=== PATIENT | female | born 1950 | race Caucasian/White ===

== ENCOUNTER 2017-09-17 10:42 | Emergency (ER) | payer OTHER ==
[~2017-09-17] VITALS: Ht 157.5 cm; Wt 52.3 kg
[2017-09-17 10:52] VITALS: Ht 157.5 cm; Wt 52.3 kg
[2017-09-17] MEDS ORDERED: ALBUT/IPRATROP 3MG/0.5MG NEB 3 ML VIAL INH STA (11:22)
[2017-09-17] MEDS ORDERED: METHYLPREDNISOLONE 125 MG VIAL IV STA (11:22)
--- NOTE | 2017-09-17 11:28 | EMERGENCY ROOM VISIT NOTE ---
History Report prepared by Jill: Behzad Ricci Under the Supervision of: Dr. Brittanie Mahan M.D. First contact with patient: 11:06 Chief Complaint: SHORTNESS OF BREATH Stated Complaint: SOB History of Present Illness The patient is a 67 year old female who presents to the Emergency Room with complaints of intermittent shortness of breath beginning a few days ago. The patient states her symptoms are most intense when she wakes up in the middle of the night. She reports she cannot catch her breath, and she sleeps propped up. The patient notes a history of HTN, pneumonia, and hyperlipidemia. She states she also smokes a pack of cigarettes a day. The patient reports she has been using her sister's inhaler for the past few days, and it has helped her symptoms. She notes she will occasionally have a productive cough. The patient denies a history of chronic lung problems, chest pain, wheezing, coughing up blood, and pain or swelling in her legs. Source of History: patient Onset: a few days ago Position: other (lungs) Quality: other (SOB) Timing: intermittent Modifying Factors (Relieving): other (inhaler) Associated Symptoms: + cough (occasionally and productive), No chest pain Note: Denies: wheezing, coughing up blood, pain or swelling in the legs Review of Systems See HPI for pertinent positives & negatives. A total of 10 systems reviewed and were otherwise negative. Past Medical & Surgical Medical Problems: (1) HLD (hyperlipidemia) (2) HTN (hypertension) (3) PNA (pneumonia) Family History Patient reports no known family medical history. Social History Smoking Status: Current Every Day Smoker Marital Status: Housing Status: lives with significant other Occupation Status: retired Current/Historical Medications Scheduled Amlodipine (Norvasc), 5 MG PO DAILY Atenolol/Chlorthalidone (Tenoretic 100 Mg/25 Mg), 1 TAB PO DAILY Atorvastatin (Lipitor), 40 MG PO DAILY Benazepril (Lotensin), 40 MG PO DAILY Prednisone (Prednisone), 10 MG PO DIRECTED Scheduled PRN Albuterol Hfa (Ventolin Hfa), 2 PUFFS INH Q6H PRN for asthma Allergies Coded Allergies: No Known Allergies (Unverified , 09/17/17) Physical Exam Vital Signs Date Time Temp Pulse Resp B/P (MAP) Pulse Ox O2 Delivery O2 Flow Rate FiO2 09/17/17 13:18 36.9 69 18 152/75 93 Room Air 09/17/17 12:40 66 09/17/17 12:28 66 18 154/80 96 Room Air 09/17/17 11:27 Room Air 97 09/17/17 10:52 36.6 64 22 152/81 98 Room Air Physical Exam Vital signs reviewed. General: Well-appearing 67 year old female, in no significant distress. HEENT: No scleral icterus, PERRLA, neck supple. Atraumatic. Cardiovascular: Regular rate and rhythm, no extra sounds. Pulmonary: Diffuse wheezing bilaterally, normal work of breathing. Abdomen: Soft, nontender, nondistended, positive bowel sounds. Musculoskeletal: Atraumatic, no peripheral edema. Neurologic: Patient awake alert and oriented x 3 Skin: Warm, dry, no rash Medical Decision & Procedures ER Provider Diagnostic Interpretation: X-ray results as stated below per interpretation by me and the radiologist: SINGLE VIEW CHEST CLINICAL HISTORY: Cough and dyspnea. FINDINGS: An AP, portable, upright chest radiograph is obtained. No prior studies are available for comparison at the time of dictation. The examination is degraded by portable technique and apical lordotic positioning. The cardiomediastinal silhouette is unremarkable noting mild atherosclerotic calcification of the thoracic aorta. Emphysematous change is noted. Nonspecific interstitial thickening is likely chronic. No airspace consolidation or pleural effusion is identified. No pneumothorax is seen. The skeletal structures are osteopenic. The bony thorax is grossly intact. Cholecystectomy clips are identified in the right upper quadrant. IMPRESSION: Emphysematous change with no acute cardiopulmonary abnormality. Electronically signed by: Dusty Garcia M.D. 09/17/2017 11:43 AM Dictated Date/Time: 09/17/2017 11:42 AM Laboratory Results 09/17/17 11:25 Red Blood Count 4.55, Mean Corpuscular Volume 90.8, Mean Corpuscular Hemoglobin 31.4, Mean Corpuscular Hemoglobin Concent 34.6, Mean Platelet Volume 9.4, Neutrophils (%) (Auto) 60.3, Lymphocytes (%) (Auto) 25.0, Monocytes (%) (Auto) 12.5, Eosinophils (%) (Auto) 1.2, Basophils (%) (Auto) 0.6, Neutrophils # (Auto ) 5.03, Lymphocytes # (Auto) 2.08, Monocytes # (Auto) 1.04, Eosinophils # (Auto ) 0.10, Basophils # (Auto) 0.05 09/17/17 11:25 Test 09/17/17 11:25 White Blood Count 8.33 K/uL (4.8-10.8) Red Blood Count 4.55 M/uL (4.2-5.4) Hemoglobin 14.3 g/dL (12.0-16.0) Hematocrit 41.3 % (37-47) Mean Corpuscular Volume 90.8 fL (80-100) Mean Corpuscular Hemoglobin 31.4 pg (25-34) Mean Corpuscular Hemoglobin Concent 34.6 g/dl (32-36) Platelet Count 324 K/uL (130-400) Mean Platelet Volume 9.4 fL (7.4-10.4) Neutrophils (%) (Auto) 60.3 % Lymphocytes (%) (Auto) 25.0 % Monocytes (%) (Auto) 12.5 % Eosinophils (%) (Auto) 1.2 % Basophils (%) (Auto) 0.6 % Neutrophils # (Auto) 5.03 K/uL (1.4-6.5) Lymphocytes # (Auto) 2.08 K/uL (1.2-3.4) Monocytes # (Auto) 1.04 K/uL (0.11-0.59) Eosinophils # (Auto) 0.10 K/uL (0-0.5) Basophils # (Auto) 0.05 K/uL (0-0.2) RDW Standard Deviation 43.7 fL (36.4-46.3) RDW Coefficient of Variation 13.3 % (11.5-14.5) Immature Granulocyte % (Auto) 0.4 % Immature Granulocyte # (Auto) 0.03 K/uL (0.00-0.02) Anion Gap 9.0 mmol/L (3-11) Est Creatinine Clear Calc Drug Dose 31.6 ml/min Estimated GFR () 47.2 Estimated GFR (Non- 40.7 BUN/Creatinine Ratio 16.8 (10-20) Calcium Level 9.1 mg/dl (8.5-10.1) Total Bilirubin 0.4 mg/dl (0.2-1) Direct Bilirubin 0.1 mg/dl (0-0.2) Aspartate Amino Transf (AST/SGOT) 19 U/L (15-37) Alanine Aminotransferase (ALT/SGPT) 19 U/L (12-78) Alkaline Phosphatase 82 U/L (45-117) Troponin I < 0.015 ng/ml (0-0.045) Total Protein 7.9 gm/dl (6.4-8.2) Albumin 4.2 gm/dl (3.4-5.0) Laboratory results per my review. Medications Administered Medications (Trade) Dose Ordered Sig/Pamela Route Start Time Stop Time Status Last Admin Dose Admin Albuterol/ Ipratropium (Duoneb) 3 ml NOW STAT INH 09/17/17 11:22 09/17/17 11:25 DC 09/17/17 11:38 3 ML Methylprednisolone Sodium Succinate (Solu-Medrol IV) 125 mg NOW STAT IV 09/17/17 11:22 09/17/17 11:25 DC 09/17/17 11:38 125 MG ECG Per My Interpretation Indication: SOB/dyspnea Rate (beats per minute): 57 Rhythm: sinus bradycardia Findings: no ectopy, other (T-wave abnormality in the inferior and lateral leads. No ST elevation.) ED Course 1120: Past medical records reviewed. The patient was evaluated in room C02. A complete history and physical examination was performed. 1254: Upon reevaluation, the patient appeared to have improvement of her symptoms. I discussed findings with her. She verbalized agreement of the treatment plan. The patient was discharged home. Medical Decision Differential diagnosis: Etiologies such as infections, reactive airway disease, pneumonia, pneumothorax , COPD, CHF, cardiac ischemia, pulmonary embolism, musculoskeletal, gastrointestinal, as well as others were entertained. This patient was evaluated and appeared to be in no significant distress. IV access was obtained and laboratory work was drawn. Patient was given a DuoNeb treatment, IV Solu-Medrol. Chest x-ray was performed and reveals evidence of emphysema without evidence of focal lung consolidation or failure. Patient's laboratory work is fairly unrevealing. Troponin is negative. Patient's feeling much improved after the above interventions. Patient will be discharged with an albuterol inhaler, prednisone taper. She was advised to stop smoking. Patient was asked to follow-up with her PCP this week for reevaluation and return to the ED for worsening of symptoms or any medical concerns. Medication Reconcilliation Current Medication List: was personally reviewed by me Blood Pressure Screening Patient's blood pressure: Elevated blood pressure Blood pressure disposition: Referred to PCP Impression Primary Impression: Emphysema/COPD Additional Impressions: Tobacco dependence due to cigarettes Encounter for smoking cessation counseling Scribe Attestation The scribe's documentation has been prepared under my direction and personally reviewed by me in its entirety. I confirm that the note above accurately reflects all work, treatment, procedures, and medical decision making performed by me. Departure Information Dispostion Home / Self-Care Prescriptions Albuterol Hfa (VENTOLIN HFA) 200 Puffs/20764 Mcg Aers 2 PUFFS INH Q6H Y for asthma, #1 INHALER Prov: Brittanie Mahan M.D. 09/17/17 Prednisone (Prednisone) 10 Mg Tab 10 MG PO DIRECTED, #31 TAB 40 mg daily for 4 days, 30 mg daily for 3 days, 20 mg daily for 2 days, 10 mg daily for 2 days Prov: Brittanie Mahan M.D. 09/17/17 Referrals Dion De Dios M.D. Forms HOME CARE DOCUMENTATION FORM, IMPORTANT VISIT INFORMATION Patient Instructions ED Smoking Cessation, [facility] Additional Instructions Diagnosis: COPD exacerbation, tobacco dependency Please read the smoking cessation handout. Prednisone 40 mg daily for 4 days, 30 mg daily for 3 days, 20 mg daily for 2 days, 10 mg daily for 2 days. Albuterol inhaler 2 puffs every 4 hours as needed for wheezing or cough. Follow-up with your primary care physician this week for reevaluation. Return to the ED for worsening of symptoms or any medical concerns. Problem Qualifiers
[2017-09-17 11:31] LABS: BASO % 0.6 %; BASO ABS # 0.05 K/uL (0-0.2); EOS % 1.2 %; HEMATOCRIT 41.3 % (37-47); HEMOGLOBIN 14.3 g/dL (12.0-16.0); IG# 0.03 K/uL (0.00-0.02); LYMPH ABS # 2.08 K/uL (1.2-3.4); MEAN CELL VOLUME 90.8 fL (80-100); MEAN CORPUSCULAR HEMOGLOBIN 31.4 pg (25-34); MEAN CORPUSCULAR HGB CONC 34.6 g/dl (32-36); MEAN PLATELET VOLUME 9.4 fL (7.4-10.4); MONO % 12.5 %; MONO ABS # 1.04 K/uL (0.11-0.59); NEUT % 60.3 %; NEUT ABS # 5.03 K/uL (1.4-6.5); PLATELET COUNT 324 K/uL (130-400); RED CELL DISTRIBUTION WIDTH CV 13.3 % (11.5-14.5); RED CELL DISTRIBUTION WIDTH SD 43.7 fL (36.4-46.3); WHITE BLOOD COUNT 8.33 K/uL (4.8-10.8)
--- NOTE | 2017-09-17 11:44 | DIAGNOSTIC IMAGING REPORT ---
SINGLE VIEW CHEST CLINICAL HISTORY: Cough and dyspnea. FINDINGS: An AP, portable, upright chest radiograph is obtained. No prior studies are available for comparison at the time of dictation. The examination is degraded by portable technique and apical lordotic positioning. The cardiomediastinal silhouette is unremarkable noting mild atherosclerotic calcification of the thoracic aorta. Emphysematous change is noted. Nonspecific interstitial thickening is likely chronic. No airspace consolidation or pleural effusion is identified. No pneumothorax is seen. The skeletal structures are osteopenic. The bony thorax is grossly intact. Cholecystectomy clips are identified in the right upper quadrant. IMPRESSION: Emphysematous change with no acute cardiopulmonary abnormality. Electronically signed by: Dusty Garcia M.D. 09/17/2017 11:43 AM Dictated Date/Time: 09/17/2017 11:42 AM
[2017-09-17 11:51] LABS: ALBUMIN 4.2 gm/dl (3.4-5.0); ALKALINE PHOSPHATASE 82 U/L (45-117); ALT/SGPT 19 U/L (12-78); AST/SGOT 19 U/L (15-37); BLOOD UREA NITROGEN 22 mg/dl (7-18); CALCIUM 9.1 mg/dl (8.5-10.1); CARBON DIOXIDE 27 mmol/L (21-32); CREATININE 1.33 mg/dl (0.60-1.20); GLUCOSE 97 mg/dl (70-99); POTASSIUM 3.9 mmol/L (3.5-5.1); SODIUM 132 mmol/L (136-145); TOTAL PROTEIN 7.9 gm/dl (6.4-8.2)
[2017-09-17] MEDS ORDERED: ATOR-24 PO (11:54)
[2017-09-17] MEDS ORDERED: ATEN100T8 PO (11:54)
[2017-09-17] MEDS ORDERED: BENA1TAB53 PO (11:54)
[2017-09-17] MEDS ORDERED: AMLO5TAB3 PO (11:54)
[2017-09-17] MEDS ORDERED: PRED10TA PO (13:08)
[2017-09-17] MEDS ORDERED: VNTHFA/IN INH (13:09)
[2017-09-17 13:18] VITALS: BP 152/75; PULSE 69; TEMP 36.9; O2SAT 93
== END 2017-09-17 13:18 | disposition home or self-care (01) ==
LOC: C.EDB 10:43 → C.EDC 13:18
DX: J44.9 Chronic obstructive pulmonary disease, unspecified (principal); F17.200 Nicotine dependence, unspecified, uncomplicated; E78.5 Hyperlipidemia, unspecified; I10 Essential (primary) hypertension

== ENCOUNTER 2018-06-21 10:11 | Inpatient (IN) ==
[~2018-06-21 10:11] MED LIST: AMIODARONE 360MG / 200ML D5W IV ONE; EPINEPHrine 2 MG in DEXTROSE 5% 250 ML IV SCH
[2018-06-21] MEDS ORDERED: HEPARIN (PORCINE) 1000 UNIT/ML 10 ML (CATH LAB USE ONLY) ONE (10:55)
[2018-06-21] MEDS ORDERED: MIDAZOLAM HCL 1 MG/ML 2ML VIAL ONE (10:55)
[2018-06-21] MEDS ORDERED: fentaNYL citrate 100 MCG/2 ML VIAL ONE (10:55)
[2018-06-21] MEDS ORDERED: NiCARDipine HCL INJ 2.5 MG/ML 10 ML AMP ONE (10:55)
[2018-06-21] MEDS ORDERED: NITROGLYCERIN/D5W 100MCG/ML 20ML SYR ONE (10:56)
[2018-06-21] MEDS ORDERED: SODIUM CHLORIDE 0.9% 1000ML 1,000 ML IV SCH (11:00)
[2018-06-21 11:17] LABS: Partial Thromboplastin Ratio 0.8; Prothrombin Time 10.7 Seconds (9.0-12.0)
[2018-06-21] MEDS ORDERED: HEPARIN SOD (PORCINE) 1000 UNIT/ML 10 ML VIAL ONE (11:24)
[2018-06-21 11:26] LABS: Hematocrit (blood only) 36.9 % (37-47); Hemoglobin 11.8 g/dL (12.0-16.0); Mean Corpuscular Volume 93.7 fL (80-100); Mean Platelet Volume 9.7 fL (7.4-10.4); Platelet Count 269 K/uL (130-400); RDW Coefficient of Variation 13.3 % (11.5-14.5); RDW Standard Deviation 45.5 fL (36.4-46.3); Red Blood Count 3.94 M/uL (4.2-5.4); White Blood Count 9.56 K/uL (4.8-10.8)
[2018-06-21 11:27] LABS: Alanine Aminotransferase 63 U/L (12-78); Albumin Level 2.4 gm/dl (3.4-5.0); BUN Creatinine Ratio 9.8 (10-20); Blood Urea Nitrogen 19 mg/dl (7-18); Carbon Dioxide 26 mmol/L (21-32); Chloride 98 mmol/L (98-107); Est GFR (African American) 30.4; Est GFR (Non-African American) 26.3; Glucose 215 mg/dl (70-99); Sodium 136 mmol/L (136-145)
[2018-06-21] MEDS ORDERED: ePHEDrine sulfate 50 MG/ML SYR IV ONE (11:31)
[2018-06-21 11:32] LABS: Calcium 13.5 mg/dl (8.5-10.1)
[2018-06-21 11:32] LABS: iSTAT Creatinine 1.7 mg/dl (0.6-1.3); iSTAT Hemoglobin 11.6 g/dl (12.0-16.0); iSTAT Ionized Calcium 1.37 mmol/l (1.12-1.32); iSTAT Potassium 3.7 mEq/L (3.3-5.0)
[2018-06-21 11:36] LABS: Albumin Globulin Ratio 0.7 (0.9-2); Alkaline Phosphatase 116 U/L (45-117); Bilirubin,Total 0.3 mg/dl (0.2-1); Creatine Kinase MB 9.1 ng/ml (0.5-3.6); Globulin 3.6 gm/dl (2.5-4.0); NT Pro B Type Natriuretic Pept 12023 pg/ml (0-900); Phosphorus 7.6 mg/dl (2.5-4.9)
[2018-06-21] MEDS ORDERED: NOREPINEPHRINE BITARTRATE 1 MG/ML 4 ML VIAL (CATH LAB USE ONLY) ONE (11:46)
[2018-06-21 11:52] LABS: T4 Free Thyroxine 1.18 ng/dl (0.8-1.6)
[2018-06-21] MEDS ORDERED: SODIUM BICARB 8.4% INJ 50 MEQ/50 ML SYR ONE ×2 (11:53→12:16)
--- NOTE | 2018-06-21 12:03 | Emergency Department Note ---
Entered by Nadja Bravo acting as a scribe for Vinay Ferrera MD History of Present Illness General Chief complaint: Cardiac Arrest/CPR Source: patient and family Mode of arrival: ambulatory Limitations: altered mental status History of Present Illness Onset (ago): minute(s) 10 Location: chest Pain Consistency: + other (worsening) Quality: + other (cardiac arrest) Associated symptoms: + shortness of breath and + other (The patient complains of diarrhea. ) The HPI is limited secondary to cardiac arrest. The patient is a 67 year old female with a history of hypertension, hyperlipidemia, and COPD who presents to the ED with cardiac arrest that onset 10 minutes ago. The patient presents with her . He states that she has been complaining of shortness of breath for several days prior to this morning. He notes that she has also been experiencing 5-10 episodes of diarrhea per day for 2 weeks. He states that the patient was concerned that she had the flu. Per , the patient asked him to drive her to the ED today for worsening shortness of breath. He notes that during the beginning of the drive, she was talking with him normally. He states that when they were about 10 minutes away, the patient collapsed in the vehicle and became unresponsive. Per , the patient was seen by her PCP several weeks ago and no issues including her heart were identified. He notes that at this time, she was told that she had a kidney problem. He denies a history of heart attack or irregular heartbeat. Per , the patient is not on oxygen at home. He is unsure of the medications that she takes and states that she is not on blood thinners. Home Medications Home Medications Medication Instructions Recorded Confirmed Type albuterol sulfate 2 inh INHALATION Q6H PRN 06/21/18 06/21/18 History amlodipine 5 mg PO DAILY 06/21/18 06/21/18 History atenolol-chlorthalidone 1 tab PO DAILY 06/21/18 06/21/18 History atorvastatin 40 mg PO DAILY 06/21/18 06/21/18 History benazepril 40 mg PO DAILY 06/21/18 06/21/18 History Allergies Allergy/AdvReac Type Severity Reaction Status Date / Time No Known Allergies Allergy Unverified 06/21/18 11:46 Past Med/Surg History Medical History CKD (chronic kidney disease), stage III (Chronic) Tobacco abuse (Chronic) COPD (chronic obstructive pulmonary disease) (Chronic) Cardiac arrest HTN (hypertension) (Chronic) HLD (hyperlipidemia) (Chronic) Emphysema/COPD (Acute) Encounter for smoking cessation counseling (Acute) Tobacco dependence due to cigarettes (Acute) No pertinent family history Surgical History History of appendectomy (Chronic) History of cholecystectomy (Chronic) No pertinent past surgical history Family History Other Diabetes Hypertension Social History Preferred Language: Czech Communication Ability: sedated Communication Ability Comment: Sedated on vent Space Sciences Director Required: No Beliefs That Will Affect Care: None marital status: marital status details: Current Living Situation: Spouse current occupational status: retired Other Information That Helps Us Care for You: No Smoking Status: Current every day smoker Hx Alcohol Use: No Hx Substance Use: No Review of Systems See HPI for pertinent positives & negatives. Other (ROS is limited secondary to cardiac arrest) Physical Exam Vital Signs Vital Signs - 24 hr 06/21/18 10:12 06/21/18 10:17 06/21/18 10:18 Rectal Temperature - Source 1 Sepsis Recent Fever Within 48 Hours No Sepsis New/Unexplained Change in Mental Status No Sepsis Action Taken by Nursing No Action Required Arterial BP Systolic Arterial BP Diastolic End-Tidal CO2 30 End Tidal CO2 (18-54mmHg) 20 Pulse Rate 138 H Pulse Rate [Bilateral] 48 L Pulse Rate from SpO2 Sensor Pulse Strength [Bilateral] Weak Respiratory Rate 16 Respiratory Effort / Characteristics Mechanically Ventilated Respiratory Depth Respiratory Pattern Blood Pressure Blood Pressure [Right Arm] 138/110 H Blood Pressure Mean 33 Blood Pressure Mean [Right Arm] 119 Blood Pressure Position [Right Arm] Lying Pulse Oximetry 70 L Oxygen Delivery Method Mechanical Vent Oxygen Flow Rate 12 Fraction of Inspired Oxygen 06/21/18 10:19 06/21/18 10:20 06/21/18 10:22 Rectal Temperature - Source 1 Sepsis Recent Fever Within 48 Hours Sepsis New/Unexplained Change in Mental Status Sepsis Action Taken by Nursing Arterial BP Systolic Arterial BP Diastolic End-Tidal CO2 33 20 End Tidal CO2 (18-54mmHg) Pulse Rate 147 H 45 L Pulse Rate [Bilateral] Pulse Rate from SpO2 Sensor Pulse Strength [Bilateral] Respiratory Rate 12 Respiratory Effort / Characteristics Respiratory Depth Respiratory Pattern Blood Pressure Blood Pressure [Right Arm] Blood Pressure Mean Blood Pressure Mean [Right Arm] Blood Pressure Position [Right Arm] Pulse Oximetry 100 Oxygen Delivery Method Mechanical Vent Oxygen Flow Rate Fraction of Inspired Oxygen 100 06/21/18 10:27 06/21/18 10:30 06/21/18 10:36 Rectal Temperature - Source 1 Sepsis Recent Fever Within 48 Hours Sepsis New/Unexplained Change in Mental Status Sepsis Action Taken by Nursing Arterial BP Systolic Arterial BP Diastolic End-Tidal CO2 25 27 29 End Tidal CO2 (18-54mmHg) Pulse Rate 126 H 59 L Pulse Rate [Bilateral] Pulse Rate from SpO2 Sensor 132 H Pulse Strength [Bilateral] Respiratory Rate Respiratory Effort / Characteristics Respiratory Depth Respiratory Pattern Blood Pressure 47/41 L 138/110 H Blood Pressure [Right Arm] Blood Pressure Mean 43 119 Blood Pressure Mean [Right Arm] Blood Pressure Position [Right Arm] Pulse Oximetry Oxygen Delivery Method Oxygen Flow Rate Fraction of Inspired Oxygen 06/21/18 10:40 06/21/18 10:41 06/21/18 10:49 Rectal Temperature - Source 1 Sepsis Recent Fever Within 48 Hours Sepsis New/Unexplained Change in Mental Status Sepsis Action Taken by Nursing Arterial BP Systolic Arterial BP Diastolic End-Tidal CO2 24 25 18 End Tidal CO2 (18-54mmHg) Pulse Rate 46 L 45 L 43 L Pulse Rate [Bilateral] Pulse Rate from SpO2 Sensor 49 L 46 L Pulse Strength [Bilateral] Respiratory Rate 16 Respiratory Effort / Characteristics Respiratory Depth Respiratory Pattern Blood Pressure 70/56 L Blood Pressure [Right Arm] Blood Pressure Mean 60 Blood Pressure Mean [Right Arm] Blood Pressure Position [Right Arm] Pulse Oximetry 100 96 100 Oxygen Delivery Method Oxygen Flow Rate Fraction of Inspired Oxygen 100 06/21/18 10:51 06/21/18 10:58 06/21/18 11:00 Rectal Temperature - Source 1 Sepsis Recent Fever Within 48 Hours Sepsis New/Unexplained Change in Mental Status Sepsis Action Taken by Nursing Arterial BP Systolic Arterial BP Diastolic End-Tidal CO2 22 15 23 End Tidal CO2 (18-54mmHg) Pulse Rate 44 L 44 L 41 L Pulse Rate [Bilateral] Pulse Rate from SpO2 Sensor 43 L 44 L 43 L Pulse Strength [Bilateral] Respiratory Rate Respiratory Effort / Characteristics Respiratory Depth Respiratory Pattern Blood Pressure 37/33 L Blood Pressure [Right Arm] Blood Pressure Mean 34 Blood Pressure Mean [Right Arm] Blood Pressure Position [Right Arm] Pulse Oximetry 100 100 100 Oxygen Delivery Method Oxygen Flow Rate Fraction of Inspired Oxygen 06/21/18 11:02 06/21/18 11:06 06/21/18 11:09 Rectal Temperature - Source 1 Sepsis Recent Fever Within 48 Hours Sepsis New/Unexplained Change in Mental Status Sepsis Action Taken by Nursing Arterial BP Systolic Arterial BP Diastolic End-Tidal CO2 23 19 18 End Tidal CO2 (18-54mmHg) Pulse Rate 123 H 76 82 Pulse Rate [Bilateral] Pulse Rate from SpO2 Sensor Pulse Strength [Bilateral] Respiratory Rate 16 Respiratory Effort / Characteristics Respiratory Depth Respiratory Pattern Blood Pressure 133/112 H Blood Pressure [Right Arm] Blood Pressure Mean 46 119 Blood Pressure Mean [Right Arm] Blood Pressure Position [Right Arm] Pulse Oximetry 100 Oxygen Delivery Method Oxygen Flow Rate Fraction of Inspired Oxygen 100 06/21/18 11:10 06/21/18 11:16 06/21/18 11:20 Rectal Temperature - Source 1 Sepsis Recent Fever Within 48 Hours Sepsis New/Unexplained Change in Mental Status Sepsis Action Taken by Nursing Arterial BP Systolic Arterial BP Diastolic End-Tidal CO2 16 15 17 End Tidal CO2 (18-54mmHg) Pulse Rate 82 89 84 Pulse Rate [Bilateral] Pulse Rate from SpO2 Sensor Pulse Strength [Bilateral] Respiratory Rate Respiratory Effort / Characteristics Respiratory Depth Respiratory Pattern Blood Pressure 136/111 H Blood Pressure [Right Arm] Blood Pressure Mean 119 Blood Pressure Mean [Right Arm] Blood Pressure Position [Right Arm] Pulse Oximetry Oxygen Delivery Method Oxygen Flow Rate Fraction of Inspired Oxygen 06/21/18 11:52 06/21/18 12:41 06/21/18 14:00 Rectal Temperature - Source 1 Sepsis Recent Fever Within 48 Hours Sepsis New/Unexplained Change in Mental Status Sepsis Action Taken by Nursing Arterial BP Systolic Arterial BP Diastolic End-Tidal CO2 End Tidal CO2 (18-54mmHg) Pulse Rate Pulse Rate [Bilateral] Pulse Rate from SpO2 Sensor Pulse Strength [Bilateral] Respiratory Rate 16 Respiratory Effort / Characteristics Respiratory Depth Respiratory Pattern Blood Pressure Blood Pressure [Right Arm] Blood Pressure Mean Blood Pressure Mean [Right Arm] Blood Pressure Position [Right Arm] Pulse Oximetry Oxygen Delivery Method Oxygen Flow Rate Fraction of Inspired Oxygen 40 40 100 06/21/18 14:08 06/21/18 14:15 06/21/18 14:23 Rectal Temperature - Source 1 Sepsis Recent Fever Within 48 Hours Sepsis New/Unexplained Change in Mental Status Sepsis Action Taken by Nursing Arterial BP Systolic Arterial BP Diastolic End-Tidal CO2 16 End Tidal CO2 (18-54mmHg) Pulse Rate 85 79 Pulse Rate [Bilateral] 84 Pulse Rate from SpO2 Sensor Pulse Strength [Bilateral] Respiratory Rate 19 19 Respiratory Effort / Characteristics Gasping/Agonal Mechanically Ventilated Respiratory Depth Normal Respiratory Pattern Agonal Apnea Blood Pressure Blood Pressure [Right Arm] 50/30 L Blood Pressure Mean Blood Pressure Mean [Right Arm] 36 Blood Pressure Position [Right Arm] Pulse Oximetry 100 Oxygen Delivery Method Mechanical Vent Mechanical Vent Oxygen Flow Rate Fraction of Inspired Oxygen 100 06/21/18 14:29 06/21/18 14:30 06/21/18 14:33 Rectal Temperature - Source 1 Sepsis Recent Fever Within 48 Hours Sepsis New/Unexplained Change in Mental Status Sepsis Action Taken by Nursing Arterial BP Systolic Arterial BP Diastolic End-Tidal CO2 16 16 15 End Tidal CO2 (18-54mmHg) Pulse Rate 76 76 76 Pulse Rate [Bilateral] Pulse Rate from SpO2 Sensor Pulse Strength [Bilateral] Respiratory Rate Respiratory Effort / Characteristics Respiratory Depth Respiratory Pattern Blood Pressure Blood Pressure [Right Arm] Blood Pressure Mean 137 72 Blood Pressure Mean [Right Arm] Blood Pressure Position [Right Arm] Pulse Oximetry Oxygen Delivery Method Oxygen Flow Rate Fraction of Inspired Oxygen 06/21/18 14:40 06/21/18 14:47 06/21/18 14:50 Rectal Temperature - Source 1 Sepsis Recent Fever Within 48 Hours Sepsis New/Unexplained Change in Mental Status Sepsis Action Taken by Nursing Arterial BP Systolic Arterial BP Diastolic End-Tidal CO2 17 23 18 End Tidal CO2 (18-54mmHg) Pulse Rate 73 84 84 Pulse Rate [Bilateral] Pulse Rate from SpO2 Sensor 72 78 96 H Pulse Strength [Bilateral] Respiratory Rate Respiratory Effort / Characteristics Respiratory Depth Respiratory Pattern Blood Pressure 146/49 H Blood Pressure [Right Arm] Blood Pressure Mean 81 Blood Pressure Mean [Right Arm] Blood Pressure Position [Right Arm] Pulse Oximetry 100 93 93 Oxygen Delivery Method Oxygen Flow Rate Fraction of Inspired Oxygen 06/21/18 15:00 Rectal Temperature - Source 1 32.7 C L Sepsis Recent Fever Within 48 Hours Sepsis New/Unexplained Change in Mental Status Sepsis Action Taken by Nursing Arterial BP Systolic 60 Arterial BP Diastolic 40 End-Tidal CO2 16 End Tidal CO2 (18-54mmHg) Pulse Rate 64 Pulse Rate [Bilateral] Pulse Rate from SpO2 Sensor 173 H Pulse Strength [Bilateral] Respiratory Rate Respiratory Effort / Characteristics Respiratory Depth Respiratory Pattern Blood Pressure Blood Pressure [Right Arm] Blood Pressure Mean Blood Pressure Mean [Right Arm] Blood Pressure Position [Right Arm] Pulse Oximetry 85 L Oxygen Delivery Method Oxygen Flow Rate Fraction of Inspired Oxygen GENERAL: Unresponsive, ill appearing. HENT: Normocephalic, atraumatic. Oropharynx with dry mucous membranes and otherwise unremarkable. EYES: Normal conjunctiva. Sclera non-icteric. Pupils 3mm bilaterally and sluggishly reactive. NECK: Atraumatic. RESPIRATORY: Scattered rhonchi with manual ventilation. CARDIAC: Pulseless. Extremities cool. ABDOMEN: Soft, non-distended. No masses. RECTAL: Deferred. MUSCULOSKELETAL: No joint edema. LOWER EXTREMITIES: Calves are equal size bilaterally. No edema. No dis coloration. NEURO: GCS 3 SKIN: No rash or jaundice noted. Course 1008: Past medical records reviewed. The patient was first seen in the ambulance bay upon arrival. CPR was started. The patient was evaluated in room B01. A complete history and physical examination was performed. 1028: CPR was started again. 1049: I reviewed the patient's case with Dr. Dano Huerta - Networks Computer Consultant. 1115: I reviewed the patient's case with Dr. Ojeda - ICU Plug Drill Operator. 1119: I reviewed the patient's case with Dr. Dano Huerta - Networks Computer Consultant. He states that [place]. 1132: I reviewed the patient's case with Vicky Kenney for Dr. Santiago. She will evaluate the patient for further management. Consultations Consultation #1: 1049: I reviewed the patient's case with Dr. Huerta - Software Quality Analyst. Time: 10:49 Consultation #2: 1115: I reviewed the patient's case with Dr. Ojeda - ICU Plug Drill Operator. Time: 11:15 Consultation #3: 1119: I reviewed the patient's case with Dr. Dano Huerta - Networks Computer Consultant. He states that he will take her [place]. Time: 11:19 Additional Consultation(s): 1132: I reviewed the patient's case with Vicky Kenney for Dr. Santiago. She will evaluate the patient for further management. Administered Medications Discontinued Medications Amiodarone HCl/Dextrose (Nexterone / D5w) Confirm Administered Dose 360 mg IV .ST[facility]-MED ONE Stop: 06/21/18 15:05 Last Admin: 06/21/18 15:31 Dose: 360 mg Documented by: [id number] Cosigned by: [id number] Cisatracurium Besylate (Nimbex) 5.3 mg IV ONCE STA Stop: 06/21/18 14:57 Last Admin: 06/21/18 16:42 Dose: Not Given Documented by: [id number] Dobutamine HCl/Dextrose (Dobutamine / D5w (Software Quality Analyst Use Only)) Confirm Administered Dose 500 mg .ROUTE .[facility]-MED ONE Stop: 06/21/18 12:52 Last Admin: 06/21/18 16:39 Dose: Not Given Documented by: [id number] Dopamine HCl/Dextrose (Dopamine / D5w) Confirm Administered Dose 400 mg IV .[facility]- MED ONE Stop: 06/21/18 15:08 Last Admin: 06/21/18 15:33 Dose: Not Given Documented by: [id number] Epinephrine HCl (Epinephrine) Confirm Administered Dose 4 mg .ROUTE .[facility]-MED ONE Stop: 06/21/18 13:37 Last Admin: 06/21/18 16:40 Dose: Not Given Documented by: [id number] Eptifibatide (Integrilin (Software Quality Analyst Use Only)) Confirm Administered Dose 20 mg .ROUTE .[facility]-MED ONE Stop: 06/21/18 12:45 Last Admin: 06/21/18 16:39 Dose: Not Given Documented by: [id number] Fentanyl Citrate (Fentanyl Citrate) Confirm Administered Dose 100 mcg .ROUTE .[facility]-MED ONE Stop: 06/21/18 10:56 Last Admin: 06/21/18 16:35 Dose: Not Given Documented by: [id number] Furosemide (Lasix) Confirm Administered Dose 40 mg IV .[facility]-MED ONE Stop: 06/21/18 12:52 Last Admin: 06/21/18 16:39 Dose: Not Given Documented by: [id number] Heparin Sodium (Porcine) (Heparin Iv Bolus (Software Quality Analyst Use Only)) Confirm Administered Dose 10,000 units .ROUTE .[facility]-MED ONE Stop: 06/21/18 10:56 Last Admin: 06/21/18 16:35 Dose: Not Given Documented by: [id number] Heparin Sodium (Porcine) (Heparin Iv Bolus) Confirm Administered Dose 10,000 units .ROUTE .STK-MED ONE Stop: 06/21/18 11:25 Last Admin: 06/21/18 16:36 Dose: Not Given Documented by: [id number] Heparin Sodium/Sodium Chloride (Heparin/Nss 1000 Unit/500ml Flush Bag) Confirm Administered Dose 3,000 units IV .STK-MED ONE Stop: 06/21/18 10:57 Last Admin: 06/21/18 16:35 Dose: Not Given Documented by: [id number] Sodium Chloride (Nss 1000ml) 1,000 mls @ 999 mls/hr IV .Q1H1M [facility] Stop: 06/21/18 12:00 Last Admin: 06/21/18 16:36 Dose: Not Given Documented by: [id number] Epinephrine HCl 2 mg/ Dextrose 252 mls @ 198.83 mls/hr IV .Q1H17M AYESHA; Protocol Stop: 06/21/18 11:15 Last Admin: 06/21/18 16:33 Dose: Not Given Documented by: [id number] Vasopressin 20 units/ Sodium (Chloride) 101 mls @ 0 mls/hr IV .Q0M AYESHA Stop: 07/21/18 12:08 Last Infusion: 06/21/18 16:15 Dose: 0 unit/min, 0 mls/hr Documented by: [id number] Admin: 06/21/18 14:30 Dose: 0.04 unit/min, 12.1 mls/hr Documented by: [id number] Cosigned by: [id number] Epinephrine HCl 4 mg/ Dextrose 254 mls @ 220.45 mls/hr IV .Q1H10M [facility]; Protocol Stop: 07/21/18 11:14 Last Admin: 06/21/18 17:57 Dose: Not Given Documented by: [id number] Admin: 06/21/18 17:57 Dose: Not Given Documented by: [id number] Titration: 06/21/18 16:24 Dose: 0 mcg/kg/min, 0 mls/hr Documented by: [id number] Admin: 06/21/18 16:23 Dose: Not Given Documented by: [id number] Admin: 06/21/18 15:29 Dose: 1.4 mcg/kg/min, 280.6 mls/hr Documented by: [id number] Albumin Human (Albumin 5%) 500 mls @ 500 mls/hr IV ONE ONE Stop: 06/21/18 14:41 Last Infusion: 06/21/18 16:34 Dose: 0 mls/hr Documented by: [id number] Admin: 06/21/18 15:34 Dose: 500 mls/hr Documented by: [id number] Ketamine HCl 500 mg/ Sodium (Chloride) 500 mls @ 5.26 mls/hr IV .Q24H AYESHA; Protocol Stop: 07/21/18 14:29 Last Admin: 06/21/18 15:25 Dose: 0.4 mg/kg/hr, 21 mls/hr Documented by: [id number] Cosigned by: [id number] Sodium Bicarbonate 150 meq/ (Dextrose) 1,150 mls @ 150 mls/hr IV .Q7H40M [facility] Stop: 07/21/18 14:44 Last Infusion: 06/21/18 16:23 Dose: 100 mls/hr Documented by: [id number] Admin: 06/21/18 15:30 Dose: 150 mls/hr Documented by: [id number] Vancomycin HCl 1,000 mg/ (Sodium Chloride) 270 mls @ 125 mls/hr IV ONE ONE Stop: 06/21/18 16:54 Last Infusion: 06/21/18 17:48 Dose: 0 mls/hr Documented by: [id number] Admin: 06/21/18 15:38 Dose: 125 mls/hr Documented by: [id number] Piperacillin Sod/Tazobactam (Sod 4.5 gm/ Dextrose) 120 mls @ 30 mls/hr IV ONE ONE; Protocol Stop: 06/21/18 18:44 Last Admin: 06/21/18 15:39 Dose: 30 mls/hr Documented by: [id number] Cisatracurium Besylate 40 mg/ (Sodium Chloride) 100 mls @ 7.89 mls/hr IV .[id number] [facility]; Protocol Stop: 07/21/18 14:59 Last Admin: 06/21/18 16:42 Dose: Not Given Documented by: [id number] Sodium Chloride (Hypertonic Saline 3%) 250 mls @ 500 mls/hr IV .Q30M ONE Stop: 06/21/18 15:44 Last Infusion: 06/21/18 15:40 Dose: 0 mls/hr Documented by: [id number] Admin: 06/21/18 15:24 Dose: 999 mls/hr Documented by: [id number] Dopamine HCl/Dextrose (Dopamine / D5w) 400 mg in 250 mls @ 4.931 mls/hr IV .Q24H AYESHA; Protocol Stop: 07/21/18 15:07 Last Admin: 06/21/18 15:27 Dose: 20 mcg/kg/min, 39.5 mls/hr Documented by: [id number] Cosigned by: [id number] Epinephrine HCl 12 mg/ (Dextrose) 262 mls @ 75.8 mls/hr IV .Q3H28M AYESHA; Protocol Stop: 07/21/18 15:29 Last Admin: 06/21/18 18:12 Dose: 1.6 mcg/kg/min, 110.3 mls/hr Documented by: [id number] Titration: 06/21/18 18:12 Dose: 1.6 mcg/kg/min, 110.3 mls/hr Documented by: [id number] Admin: 06/21/18 16:23 Dose: 1.6 mcg/kg/min, 110.3 mls/hr Documented by: [id number] Hetastarch/Sodium Chloride (Voluven) 500 mls @ 500 mls/hr IV .Q1H ONE Stop: 06/21/18 16:44 Last Admin: 06/21/18 18:26 Dose: Not Given Documented by: [id number] Norepinephrine Bitartrate 8 mg (/ Dextrose) 258 mls @ 101.78 mls/hr IV .Q2H33M AYESHA; Protocol Stop: 07/21/18 15:50 Last Admin: 06/21/18 18:15 Dose: 1 mcg/kg/min, 101.8 mls/hr Documented by: [id number] Cosigned by: [id number] Titration: 06/21/18 18:15 Dose: 1 mcg/kg/min, 101.8 mls/hr Documented by: [id number] Cosigned by: [id number] Admin: 06/21/18 16:24 Dose: 1 mcg/kg/min, 101.8 mls/hr Documented by: [id number] Cosigned by: [id number] Hetastarch/Sodium Chloride (Voluven) 500 mls @ 500 mls/hr IV .Q1H AYESHA; Protocol Stop: 06/21/18 19:29 Last Admin: 06/21/18 15:45 Dose: 500 mls/hr Documented by: [id number] Midazolam HCl (Versed) Confirm Administered Dose 2 mg .ROUTE .[facility] ONE Stop: 06/21/18 10:56 Last Admin: 06/21/18 16:35 Dose: Not Given Documented by: [id number] Morphine Sulfate (Morphine Sulfate) Confirm Administered Dose 4 mg .ROUTE .[facility] ONE Stop: 06/21/18 16:52 Last Admin: 06/21/18 16:54 Dose: 4 mg Documented by: [id number] Morphine Sulfate (Morphine Sulfate) Confirm Administered Dose 4 mg .ROUTE .[facility] ONE Stop: 06/21/18 18:21 Last Admin: 06/21/18 18:24 Dose: 4 mg Documented by: [id number] Nicardipine HCl (Cardene) Confirm Administered Dose 25 mg .ROUTE .[facility] ONE Stop: 06/21/18 10:56 Last Admin: 06/21/18 16:34 Dose: Not Given Documented by: [id number] Nitroglycerin/Dextrose (Nitroglycerin/D5w 100 Mcg/Ml 20ml Syringe) Confirm Administered Dose 2,000 mcg .ROUTE .[facility] ONE Stop: 06/21/18 10:57 Last Admin: 06/21/18 16:35 Dose: Not Given Documented by: [id number] Norepinephrine Bitartrate (Levophed (Software Quality Analyst Use Only)) Confirm Administered Dose 8 mg .ROUTE .[facility] ONE Stop: 06/21/18 11:47 Last Admin: 06/21/18 16:37 Dose: Not Given Documented by: [id number] Phenylephrine HCl (Bladimir-Synephrine (Software Quality Analyst Use Only)) Confirm Administered Dose 10 mg .ROUTE .[facility] ONE Stop: 06/21/18 13:37 Last Admin: 06/21/18 16:40 Dose: Not Given Documented by: [id number] Sodium Bicarbonate (Sodium Bicarbonate 8.4%) Confirm Administered Dose 50 meq .ROUTE .[facility] ONE Stop: 06/21/18 11:54 Last Admin: 06/21/18 16:37 Dose: Not Given Documented by: [id number] Sodium Bicarbonate (Sodium Bicarbonate 8.4%) Confirm Administered Dose 50 meq .ROUTE .[facility]-MED ONE Stop: 06/21/18 12:17 Last Admin: 06/21/18 16:37 Dose: Not Given Documented by: [id number] Medical Decision Making Differential Diagnosis Differential Diagnoses: ACS, respiratory failure, electrolyte abnormalities, PNA, UTI. Medical Records Attestation: I reviewed the patient's medical records. Home Medications Current Medication List: was personally reviewed by me Laboratory Data Attestation: I reviewed the patient's lab results. Result diagrams: 06/21/18 10:41 06/21/18 10:25 Lab Results 06/21/18 06/21/18 06/21/18 Range/Units 10:25 10:25 10:41 WBC 9.56 (4.8-10.8) K/uL RBC 3.94 L (4.2-5.4) M/uL Hgb 11.8 L (12.0-16.0) g/dL POC Hgb (12.0-16.0) g/dl Hct 36.9 L (37-47) % POC Hct (37-47) % MCV 93.7 (80-100) fL MCH 29.9 (25-34) pg MCHC 32.0 (32-36) g/dL RDW Std Deviation 45.5 (36.4-46.3) fL RDW Coeff of Carmen 13.3 (11.5-14.5) % Plt Count 269 (130-400) K/uL MPV 9.7 (7.4-10.4) fL Neutrophils % (Manual) 52.0 % Lymphocytes % (Manual) 38.5 % Monocytes % (Manual) 2.6 % Metamyelocytes % (Man) 6.0 % Myelocytes % (Man) 0.9 % Neutrophils # (Manual) 4.97 (1.4-6.5) K/uL Total Absolute Neuts 4.97 (1.4-6.5) K/uL Lymphocytes # (Manual) 3.68 H (1.2-3.4) K/uL Total Abs Lymphocytes 3.68 H (1.2-3.4) K/uL Monocytes # (Manual) 0.25 (0.11-0.59) K/uL Metamyelocytes # (Man) 0.57 H (0-0) K/uL Myelocytes # (Manual) 0.09 H (0-0) K/uL PT 10.7 (9.0-12.0) Seconds INR 1.0 (0.9-1.1) APTT 22.0 (21.0-31.0) Seconds PTT Ratio 0.8 Activ Coag Time Kaolin (94-140) SECONDS Sample Site POC pH (7.35-7.45) POC pCO2 (35-46) mmHg POC pO2 (80-95) mmHg POC HCO3 (19-24) jonathan/L POC Base Excess (-9-1.8) jonathan/L POC ABG O2 Sat (90-95) % Jesus Test O2 Delivery Device POC O2 Rate Minute Ventilation POC FiO2 % Tidal Volume PEEP POC Sodium (135-144) mEq/L Sodium 136 (136-145) mmol/L POC Potassium (3.3-5.0) mEq/L Potassium (3.5-5.1) mmol/L POC Chloride (101-112) mEq/L Chloride 98 (98-107) mmol/L Carbon Dioxide 26 (21-32) mmol/L POC Total CO2 (24-31) mEq/l Anion Gap 12.0 H (3-11) POC Anion Gap (16-25) mmol/L POC BUN (7-18) mg/dl BUN 19 H (7-18) mg/dl Creatinine 1.91 H (0.6-1.2) mg/dl POC Creatinine (0.6-1.3) mg/dl Est Cr Clr Drug Dosing Not Reportable Est GFR ( Amer) 30.4 Est GFR (Non-Af Amer) 26.3 BUN/Creatinine Ratio 9.8 L (10-20) Glucose 215 H (70-99) mg/dl POC Glucose (other) (70-99) mg/dl Calcium 13.5 H* (8.5-10.1) mg/dl POC Ioniz Calcium Geoff (1.12-1.32) mmol/l Phosphorus 7.6 H (2.5-4.9) mg/dl Magnesium (1.8-2.4) mg/dl Total Bilirubin 0.3 (0.2-1) mg/dl AST (15-37) U/L ALT 63 (12-78) U/L Alkaline Phosphatase 116 (45-117) U/L Total Creatine Kinase (26-192) U/L CK-MB (CK-2) 9.1 H (0.5-3.6) ng/ml CK/CKMB % Calc TNP Troponin I 3.450 H* (0-0.045) ng/ml NT-Pro-B Natriuret Pep 66555 H (0-900) pg/ml Total Protein 6.0 L (6.4-8.2) gm/dl Albumin 2.4 L (3.4-5.0) gm/dl Globulin 3.6 (2.5-4.0) gm/dl Albumin/Globulin Ratio 0.7 L (0.9-2) Lipase 168 (73-393) U/L TSH 5.860 H (0.300-4.500) uIu/ml Free T4 1.18 (0.8-1.6) ng/dl Blood Type Blood Type Recheck Antibody Screen Crossmatch 06/21/18 06/21/18 06/21/18 Range/Units 10:41 11:17 11:51 WBC (4.8-10.8) K/uL RBC (4.2-5.4) M/uL Hgb (12.0-16.0) g/dL POC Hgb 11.6 L (12.0-16.0) g/dl Hct (37-47) % POC Hct 34 L (37-47) % MCV (80-100) fL MCH (25-34) pg MCHC (32-36) g/dL RDW Std Deviation (36.4-46.3) fL RDW Coeff of Carmen (11.5-14.5) % Plt Count (130-400) K/uL MPV (7.4-10.4) fL Neutrophils % (Manual) % Lymphocytes % (Manual) % Monocytes % (Manual) % Metamyelocytes % (Man) % Myelocytes % (Man) % Neutrophils # (Manual) (1.4-6.5) K/uL Total Absolute Neuts (1.4-6.5) K/uL Lymphocytes # (Manual) (1.2-3.4) K/uL Total Abs Lymphocytes (1.2-3.4) K/uL Monocytes # (Manual) (0.11-0.59) K/uL Metamyelocytes # (Man) (0-0) K/uL Myelocytes # (Manual) (0-0) K/uL PT (9.0-12.0) Seconds INR (0.9-1.1) APTT (21.0-31.0) Seconds PTT Ratio Activ Coag Time Kaolin (94-140) SECONDS Sample Site POC pH 7.14 L* (7.35-7.45) POC pCO2 39 (35-46) mmHg POC pO2 > 420 H (80-95) mmHg POC HCO3 13 L (19-24) jonathan/L POC Base Excess -16.0 L (-9-1.8) jonathan/L POC ABG O2 Sat 100.0 H (90-95) % Jesus Test O2 Delivery Device POC O2 Rate Minute Ventilation POC FiO2 % Tidal Volume PEEP POC Sodium 137 (135-144) mEq/L Sodium (136-145) mmol/L POC Potassium 3.7 (3.3-5.0) mEq/L Potassium (3.5-5.1) mmol/L POC Chloride 99 L (101-112) mEq/L Chloride (98-107) mmol/L Carbon Dioxide (21-32) mmol/L POC Total CO2 23 L 14 L (24-31) mEq/l Anion Gap (3-11) POC Anion Gap 19.0 (16-25) mmol/L POC BUN 19 H (7-18) mg/dl BUN (7-18) mg/dl Creatinine (0.6-1.2) mg/dl POC Creatinine 1.7 H (0.6-1.3) mg/dl Est Cr Clr Drug Dosing Est GFR ( Amer) Est GFR (Non-Af Amer) BUN/Creatinine Ratio (10-20) Glucose (70-99) mg/dl POC Glucose (other) 271 H (70-99) mg/dl Calcium (8.5-10.1) mg/dl POC Ioniz Calcium Geoff 1.37 H (1.12-1.32) mmol/l Phosphorus (2.5-4.9) mg/dl Magnesium (1.8-2.4) mg/dl Total Bilirubin (0.2-1) mg/dl AST (15-37) U/L ALT (12-78) U/L Alkaline Phosphatase (45-117) U/L Total Creatine Kinase (26-192) U/L CK-MB (CK-2) (0.5-3.6) ng/ml CK/CKMB % Calc Troponin I (0-0.045) ng/ml NT-Pro-B Natriuret Pep (0-900) pg/ml Total Protein (6.4-8.2) gm/dl Albumin (3.4-5.0) gm/dl Globulin (2.5-4.0) gm/dl Albumin/Globulin Ratio (0.9-2) Lipase (73-393) U/L TSH (0.300-4.500) uIu/ml Free T4 (0.8-1.6) ng/dl Blood Type A Positive Blood Type Recheck Antibody Screen NEGATIVE Crossmatch See Detail 06/21/18 06/21/18 06/21/18 Range/Units 12:08 12:10 12:37 WBC (4.8-10.8) K/uL RBC (4.2-5.4) M/uL Hgb (12.0-16.0) g/dL POC Hgb (12.0-16.0) g/dl Hct (37-47) % POC Hct (37-47) % MCV (80-100) fL MCH (25-34) pg MCHC (32-36) g/dL RDW Std Deviation (36.4-46.3) fL RDW Coeff of Carmen (11.5-14.5) % Plt Count (130-400) K/uL MPV (7.4-10.4) fL Neutrophils % (Manual) % Lymphocytes % (Manual) % Monocytes % (Manual) % Metamyelocytes % (Man) % Myelocytes % (Man) % Neutrophils # (Manual) (1.4-6.5) K/uL Total Absolute Neuts (1.4-6.5) K/uL Lymphocytes # (Manual) (1.2-3.4) K/uL Total Abs Lymphocytes (1.2-3.4) K/uL Monocytes # (Manual) (0.11-0.59) K/uL Metamyelocytes # (Man) (0-0) K/uL Myelocytes # (Manual) (0-0) K/uL PT (9.0-12.0) Seconds INR (0.9-1.1) APTT (21.0-31.0) Seconds PTT Ratio Activ Coag Time Kaolin 406 H (94-140) SECONDS Sample Site POC pH 7.28 L 7.24 L (7.35-7.45) POC pCO2 44 50 H (35-46) mmHg POC pO2 226 H 135 H (80-95) mmHg POC HCO3 21 22 (19-24) jonathna/L POC Base Excess -6.0 -6.0 (-9-1.8) jonathan/L POC ABG O2 Sat 100.0 H 98.0 H (90-95) % Jesus Test O2 Delivery Device POC O2 Rate Minute Ventilation POC FiO2 % [place] Volume PEEP POC Sodium (135-144) mEq/L Sodium (136-145) mmol/L POC Potassium (3.3-5.0) mEq/L Potassium (3.5-5.1) mmol/L POC Chloride (101-112) mEq/L Chloride (98-107) mmol/L Carbon Dioxide (21-32) mmol/L POC Total CO2 22 L 23 L (24-31) mEq/l Anion Gap (3-11) POC Anion Gap (16-25) mmol/L POC BUN (7-18) mg/dl BUN (7-18) mg/dl Creatinine (0.6-1.2) mg/dl POC Creatinine (0.6-1.3) mg/dl Est Cr Clr Drug Dosing Est GFR ( Amer) Est GFR (Non-Af Amer) BUN/Creatinine Ratio (10-20) Glucose (70-99) mg/dl POC Glucose (other) (70-99) mg/dl Calcium (8.5-10.1) mg/dl POC Ioniz Calcium Geoff (1.12-1.32) mmol/l Phosphorus (2.5-4.9) mg/dl Magnesium (1.8-2.4) mg/dl Total Bilirubin (0.2-1) mg/dl AST (15-37) U/L ALT (12-78) U/L Alkaline Phosphatase (45-117) U/L Total Creatine Kinase (26-192) U/L CK-MB (CK-2) (0.5-3.6) ng/ml CK/CKMB % Calc Troponin I (0-0.045) ng/ml NT-Pro-B Natriuret Pep (0-900) pg/ml Total Protein (6.4-8.2) gm/dl Albumin (3.4-5.0) gm/dl Globulin (2.5-4.0) gm/dl Albumin/Globulin Ratio (0.9-2) Lipase (73-393) U/L TSH (0.300-4.500) uIu/ml Free T4 (0.8-1.6) ng/dl Blood Type Blood Type Recheck Antibody Screen Crossmatch 06/21/18 06/21/18 06/21/18 Range/Units 12:37 12:49 12:50 WBC (4.8-10.8) K/uL RBC (4.2-5.4) M/uL Hgb (12.0-16.0) g/dL POC Hgb (12.0-16.0) g/dl Hct (37-47) % POC Hct (37-47) % MCV (80-100) fL MCH (25-34) pg MCHC (32-36) g/dL RDW Std Deviation (36.4-46.3) fL RDW Coeff of Carmen (11.5-14.5) % Plt Count (130-400) K/uL MPV (7.4-10.4) fL Neutrophils % (Manual) % Lymphocytes % (Manual) % Monocytes % (Manual) % Metamyelocytes % (Man) % Myelocytes % (Man) % Neutrophils # (Manual) (1.4-6.5) K/uL Total Absolute Neuts (1.4-6.5) K/uL Lymphocytes # (Manual) (1.2-3.4) K/uL Total Abs Lymphocytes (1.2-3.4) K/uL Monocytes # (Manual) (0.11-0.59) K/uL Metamyelocytes # (Man) (0-0) K/uL Myelocytes # (Manual) (0-0) K/uL PT (9.0-12.0) Seconds INR (0.9-1.1) APTT (21.0-31.0) Seconds PTT Ratio Activ Coag Time Kaolin 626 H 489 H (94-140) SECONDS Sample Site POC pH 7.18 L* (7.35-7.45) POC pCO2 63 H (35-46) mmHg POC pO2 35 L (80-95) mmHg POC HCO3 23 (19-24) jonathan/L POC Base Excess -5.0 (-9-1.8) jonathan/L POC ABG O2 Sat 51.0 L (90-95) % Jesus Test O2 Delivery Device POC O2 Rate Minute Ventilation POC FiO2 % [place]idal Volume PEEP POC Sodium (135-144) mEq/L Sodium (136-145) mmol/L POC Potassium (3.3-5.0) mEq/L Potassium (3.5-5.1) mmol/L POC Chloride (101-112) mEq/L Chloride (98-107) mmol/L Carbon Dioxide (21-32) mmol/L POC Total CO2 25 (24-31) mEq/l Anion Gap (3-11) POC Anion Gap (16-25) mmol/L POC BUN (7-18) mg/dl BUN (7-18) mg/dl Creatinine (0.6-1.2) mg/dl POC Creatinine (0.6-1.3) mg/dl Est Cr Clr Drug Dosing Est GFR ( Amer) Est GFR (Non-Af Amer) BUN/Creatinine Ratio (10-20) Glucose (70-99) mg/dl POC Glucose (other) (70-99) mg/dl Calcium (8.5-10.1) mg/dl POC Ioniz Calcium Geoff (1.12-1.32) mmol/l Phosphorus (2.5-4.9) mg/dl Magnesium (1.8-2.4) mg/dl Total Bilirubin (0.2-1) mg/dl AST (15-37) U/L ALT (12-78) U/L Alkaline Phosphatase (45-117) U/L Total Creatine Kinase (26-192) U/L CK-MB (CK-2) (0.5-3.6) ng/ml CK/CKMB % Calc Troponin I (0-0.045) ng/ml NT-Pro-B Natriuret Pep (0-900) pg/ml Total Protein (6.4-8.2) gm/dl Albumin (3.4-5.0) gm/dl Globulin (2.5-4.0) gm/dl Albumin/Globulin Ratio (0.9-2) Lipase (73-393) U/L TSH (0.300-4.500) uIu/ml Free T4 (0.8-1.6) ng/dl Blood Type Blood Type Recheck Antibody Screen Crossmatch 06/21/18 06/21/18 Range/Units 14:32 14:53 WBC (4.8-10.8) K/uL RBC (4.2-5.4) M/uL Hgb (12.0-16.0) g/dL POC Hgb (12.0-16.0) g/dl Hct (37-47) % POC Hct (37-47) % MCV (80-100) fL MCH (25-34) pg MCHC (32-36) g/dL RDW Std Deviation (36.4-46.3) fL RDW Coeff of Carmen (11.5-14.5) % Plt Count (130-400) K/uL MPV (7.4-10.4) fL Neutrophils % (Manual) % Lymphocytes % (Manual) % Monocytes % (Manual) % Metamyelocytes % (Man) % Myelocytes % (Man) % Neutrophils # (Manual) (1.4-6.5) K/uL Total Absolute Neuts (1.4-6.5) K/uL Lymphocytes # (Manual) (1.2-3.4) K/uL Total Abs Lymphocytes (1.2-3.4) K/uL Monocytes # (Manual) (0.11-0.59) K/uL Metamyelocytes # (Man) (0-0) K/uL Myelocytes # (Manual) (0-0) K/uL PT (9.0-12.0) Seconds INR (0.9-1.1) APTT (21.0-31.0) Seconds PTT Ratio Activ Coag Time Kaolin (94-140) SECONDS Sample Site Art Line POC pH 7.12 L* (7.35-7.45) POC pCO2 45 (35-46) mmHg POC pO2 > 420 H (80-95) mmHg POC HCO3 15 L (19-24) jonathan/L POC Base Excess -14.0 L (-9-1.8) jonathan/L POC ABG O2 Sat 100.0 H (90-95) % Jesus Test NA O2 Delivery Device Ventilator POC O2 Rate 16 Minute Ventilation 8.0 POC FiO2 100 % Tidal Volume 500 PEEP 5 POC Sodium (135-144) mEq/L Sodium (136-145) mmol/L POC Potassium (3.3-5.0) mEq/L Potassium (3.5-5.1) mmol/L POC Chloride (101-112) mEq/L Chloride (98-107) mmol/L Carbon Dioxide (21-32) mmol/L POC Total CO2 16 L (24-31) mEq/l Anion Gap (3-11) POC Anion Gap (16-25) mmol/L POC BUN (7-18) mg/dl BUN (7-18) mg/dl Creatinine (0.6-1.2) mg/dl POC Creatinine (0.6-1.3) mg/dl Est Cr Clr Drug Dosing Est GFR ( Amer) Est GFR (Non-Af Amer) BUN/Creatinine Ratio (10-20) Glucose (70-99) mg/dl POC Glucose (other) (70-99) mg/dl Calcium (8.5-10.1) mg/dl POC Ioniz Calcium Geoff (1.12-1.32) mmol/l Phosphorus (2.5-4.9) mg/dl Magnesium (1.8-2.4) mg/dl Total Bilirubin (0.2-1) mg/dl AST (15-37) U/L ALT (12-78) U/L Alkaline Phosphatase (45-117) U/L Total Creatine Kinase (26-192) U/L CK-MB (CK-2) (0.5-3.6) ng/ml CK/CKMB % Calc Troponin I (0-0.045) ng/ml NT-Pro-B Natriuret Pep (0-900) pg/ml Total Protein (6.4-8.2) gm/dl Albumin (3.4-5.0) gm/dl Globulin (2.5-4.0) gm/dl Albumin/Globulin Ratio (0.9-2) Lipase (73-393) U/L TSH (0.300-4.500) uIu/ml Free T4 (0.8-1.6) ng/dl Blood Type Blood Type Recheck A Positive Antibody Screen Crossmatch Imaging Data Radiologist's Impression: Radiology results as stated below per my review and the radiologist's interpretation: XR chest 1V portable HISTORY: Atypical Chest pain COMPARISON: Chest 09/17/2017. FINDINGS: The endotracheal tube terminates 3.5 cm from the fito. The heart is normal in size. No pneumothorax. No pleural effusions. No new focal lung consolidations to suggest pneumonia. Progressive diffuse interstitial thickening suggestive of developing pulmonary edema. IMPRESSION: 1. The endotracheal tube terminates 3.5 cm from the fito. 2. Progressive diffuse interstitial thickening suggestive of developing pulmonary edema. Electronically signed by: Ja Catalan M.D. 06/21/2018 12:15 PM Dictated: 06/21/18 1214 Transcribed: 06/21/18 121 ECG Data Attestation: I personally reviewed and interpreted this ECG as follows: Indication: other (cardiac arrest) Rate (beats per minute): 44 Rhythm: sinus bradycardia Findings: + other (T wave flattening in AVL, AV dissociation and junctional bradycardia) and + ST depression (V3 V4 V5) Additional Comments: 1102: Sinus bradycardia with a rate of 39. 1st degree AV bl ock. ST depression in V3, V4, V5. ST depressions AVL. Elevation in lead 3 and AVF. 1110: Brief run of non-sustained V-Tach. 1111: Sinus rhythm with a rate of 82. ST depression in V2, V3, V4 with elevation in lead 3 and AVF. 1112: Atrial fibrillation with a rate of 86, ST elevation in lead 3 and AFC with depression in lead V3, V4 V5. Blood Pressure Blood Pressure Findings: Normal blood pressure Blood Pressure Disposition: further management by hospitalist LLOYD Morales The patient is a 67-year-old woman with a past medical history of COPD, CKD, hypertension, hyperlipidemia who presents emergency department with V. fib arrest outside the emergency department ambulance bay in the setting of having a week or so of daily diarrhea developing shortness of breath over the past 2 days that became acutely worse today per hpi. On arrival the patient is unresponsive found to be in ventricular fibrillation outside of the ambulance bay on the monitor and she received an immediate shock and subsequently brought into the critical care bay where I/O and IV access was obtained. The patient remained in ventricular fibrillation and received 5 rounds of shocks and epinephrine and was given amiodarone load of 300 mg followed by 150 mg. Limited bedside echo did not show any overt pericardial effusion. IVC was 100% variable with manual ventilation. She periodically would experience PEA bradycardia which became stabilized with IV fluid bolus and epinephrine drip with HR 80s. Initial EKG demonstrates ST depressions in V2 through V5 with serial EKGs demonstrating evolution of likely inferior ST elevation NE. Patient was intubated on arrival by EMS staff under my supervision with good bilateral breath sounds and capnography. Chest x-ray performed with ET tube acceptable per my review. iSTAT Chem8 with Na 137, K 3.7, bicarb 23 Glc 271, Cr. 1.7 H/H 11.6/34. Case was reviewed with Dr. Huerta who evaluated the patient at the bedside will take the patient to the Software Quality Analyst. Additionally discussed with Dr. Barbosa, ICU golf cart assembler. Case also discussed with Anne Marie López PA-C who will admit the patient to the ICU. Impression & Plan Cardiac arrest with ventricular fibrillation, ST elevation (STEMI) myocardial infarction Critical Care Time I have personally spent 90 minutes of critical care time in the direct management of this patient. This includes bedside care, interpretation of diagnostic studies, and testing, discussion with consultants, patient, and family members, and other required patient management activities. This 90 mi nutes is in excess of all separately billable procedures. Critical Care Time: Yes (90) Total Critical Care Time: 90 Discharge Plan Visit Data *Final* Discharge Date/Time: 06/21/18 11:30 Chief Complaint: Cardiac Arrest/CPR ED Provider: Vinay Ferrera Discharge Problem: Cardiac arrest with ventricular fibrillation, ST elevation (STEMI) myocardial infarction Patient Disposition: Being Evaluated by Hospitalist Discharge Instructions Interventions: ED Discharge Assessment Last Done: 06/21/18 11:30 Discharge Problem: ST elevation (STEMI) myocardial infarction Qualifiers: Involved coronary artery: unspecified coronary artery Qualified Code(s): I21.3 - ST elevation (STEMI) myocardial infarction of unspecified site The scribe's documentation has been prepared under my direction and personally reviewed by me in its entirety. I confirm that the note above accurately reflects all work, treatment, procedures, and medical decision making performed by me.
[2018-06-21 12:05] LABS: ALC (manual) 3.68 K/uL (1.2-3.4); Lymphocytes # (manual) 3.68 K/uL (1.2-3.4); Lymphocytes % (manual) 38.5 %; Metamyelocytes # (manual) 0.57 K/uL (0-0); Monocytes # (manual) 0.25 K/uL (0.11-0.59); Monocytes % (manual) 2.6 %; Myelocytes # (manual) 0.09 K/uL (0-0); Myelocytes % (manual) 0.9 %
[2018-06-21] MEDS ORDERED: VASOPRESSIN 20 UNITS in 0.9 % SODIUM CHLORIDE 100 ML IV SCH (12:09)
--- NOTE | 2018-06-21 12:16 | XRay Report ---
XR chest 1V portable HISTORY: Atypical Chest pain COMPARISON: Chest 09/17/2017. FINDINGS: The endotracheal tube terminates 3.5 cm from the fito. The heart is normal in size. No pn eumothorax. No pleural effusions. No new focal lung consolidations to suggest pneumonia. Progressive diffuse interstitial thickening suggestive of developing pulmonary edema. IMPRESSION: 1. The endotracheal tube terminates 3.5 cm from the fito. 2. Progressive diffuse interstitial thickening suggestive of developing pulmonary edema. Electronically signed by: Ja Catalan M.D. 06/21/2018 12:15 PM
[2018-06-21 12:24] LABS: iSTAT Arterial Blood Gas HCO3 13 meg/L (19-24); iSTAT Arterial Blood Gas pCO2 39 mmHg (35-46); iSTAT Arterial Blood Gas pH 7.14 (7.35-7.45); iSTAT Carbon Dioxide 14 mEq/l (24-31)
[2018-06-21 12:24] LABS: iSTAT Arterial Blood Gas HCO3 21 meg/L (19-24); iSTAT Arterial Blood Gas pCO2 44 mmHg (35-46); iSTAT Arterial Blood Gas pH 7.28 (7.35-7.45); iSTAT Carbon Dioxide 22 mEq/l (24-31)
[2018-06-21] MEDS ORDERED: EPTIFIBATIDE 2 MG/ML 10 ML VIAL (CATH LAB USE ONLY) ONE (12:44)
[2018-06-21] MEDS ORDERED: DOBUTamine 500MG / 250ML D5W (CATH LAB USE ONLY) ONE (12:51)
[2018-06-21] MEDS ORDERED: FUROSEMIDE 40 MG/4 ML VIAL IV ONE (12:51)
[2018-06-21] MEDS ORDERED: EPINEPHrine INJ 1 MG/ML AMP ONE (13:36)
[2018-06-21] MEDS ORDERED: PHENYLEPHRINE HCL INJ 10 MG/ML VIAL (CATH LAB USE ONLY) ONE (13:36)
[2018-06-21] MEDS ORDERED: ALBUMIN 5% 500 ML IV ONE (13:42)
--- NOTE | 2018-06-21 14:22 | Cardiac Catheterization ---
Cardiac Cath Procedure Full Procedure Date June 21, 2018 Pre-Procedure Diagnosis Pre-Procedure Diagnosis: STEMI AUC Score AUC Score: 9 Post-Procedure Diagnosis Post-Procedure Diagnosis: Severe CAD and Elevated Intracardiac Pressures Procedure(s) Performed Procedure(s) Performed: Coronary Angiography, Left Heart Cath, Right Heart Cath, Drug Eluting Stent, Temporary Pacemaker, IABP, Aortography and Femoral Artery Angiography Director [facility] Job Huerta MD Grave Cleaner(s) Albert Estimated Blood Loss Estimated Blood Loss: 10 Medication(s) Medication(s): Epinephrine, Heparin, Lidocaine 1%, Bladimir-Synephrine and Norepinephrine Summary of Findings Indication: Cardiac arrest 67 yo woman with COPD, HTN, dyslipidemia admitted here after [id number] cardiac arrest en route to [facility] ED. Had been feeling unwell and while being transported to ED by became unresponsive. Initial rhythm VF. Multiple shocks, CPR, later PEA before ROSC. ECG showed questionable inferior ST elevations. On transfer to dairy and food laboratory assistant on epi infusion, intubated, unresponsive off sedatives. Access: 6Fr right radial artery, 7Fr right CFV Catheters: JL4, JR4; EBU 3.75, JR4 Findings: LM - luminal irregularities LAD - Moderate caliber vessel without significant disease LCx - Occluded proximally RCA - Occluded in mid segement. PDA partially fills via left to right collaterals. LVEDP 35 PCI: Anticoagulation - heparin, IC integrilin LM cannulated with EBU 3.75 guide Proximal circumflex occlusion crossed with pilot can router 50 wire and aid of balloon. Prox to mid circumflex dilated with 2.5 balloon. Prox to mid circumflex stented with 2.5 x 18 [place] STEVE. Stent post-dilated with 2.5 NC. Post procedure circumflex small but with NILESH 3 flow and no apparent coronary complications. Course complicated by bradycardia with apparent 2:1 AV block and temp venous pacemaker placed. RCA cannulated with JR 4 guide Mid RCA occlusion crossed with pilot can router 50 wire Mid RCA dilated with 2.5 compliant balloon. Notable thrombus in PDA after ballooning. PDA thrombus dottered and IC integrilin bolus administered Mid into distal RCA stented with 2.5 x 26 [place] STEVE. Stent post-dilated with 2.75 NC Post procedure NILESH 3 flow, stent well-expanded. Small distal PDA occluded from residual thrombus. RHC: RA 6 RV 35/6 PA 35/12 (18) PCW 16 PA sat 51% Ao sat 96% Thermo CO 2.1 (on norepinephrine) Started on dobutamine. While looking to place cooling catheter patient became increasing hemodynamically unstable requiring increasing norepi, vasopressin, and epinephrine boluses. Hematoma noted at right MANAGER METAL access site. Femoral artery angiogram/aortogram showed diseased, small, tapering bilateral iliac arteries (<4 mm) with diminished flow Impella considered but thought not to be a candidate in the setting iliac size and concern for active bleeding. IABP placed via R MANAGER METAL via 7.5 Fr sheath Summary: 1. Cardiac arrest 2. Cardiogenic shock 3. Severe multivessel CAD - Occluded mid RCA - Occluded proximal circumflex. 4. Bradycardia with 2:1 AV block requiring temporary pacemaker 5. Bilateral iliac disease 6. RT groin hematoma/possible RP bleed 7. Successful PCI of proximal circumflex with single STEVE (2.5 x 18 [place]). 8. Successful PCI of mid RCA with single STEVE (2.5 x 26 [place]; post-dilated with 2.75 NC). Recommendations: - transferred to ICU for continued resuscitation - Load with ASA/Clopidogrel when able - hypothermia protocol per ICU team Hemodynamics Rest Ao:: 154/82/109 Final Ao: 68/52 LV: 123/35 Recommendations Recommendations: Medical Therapy and/or Counseling and PCI without planned CABG Specimens Specimens: None Radiation Exposure (mGy) 2157 Contrast (mls) 130 Fluids (cc crystalloids) Fluids (cc crystalloids): 2400 Drains Drains: none Anesthesia none Procedural Complication(s) None Disposition ICU ACC Data: Plasterer Rough Cardiac Status Clinical evaluation leading to the procedure CAD Presenation: STEMI Anginal Classification: CCS IV Heart Failure: No Cardiogenic Shock within 24 Hours: Yes Cardiac Arrest within 24 Hours: Yes Imaging Studies Past 6 Months: No Stress Studies Past 6 Months: No Diagnostic Physicians Name: Job Huerta MD Status: Emergency Closure Device Percutaneous Entry Location: Femoral Closure Device: None-Manual Hold Recommendations: Medical Therapy and/or Counseling and PCI without planned CABG PCI Indication: PCI for STEMI - Unstable First Noted: Subsequent EKG Lesion Segment Name: mid RCA Culprit Artery: Yes Stenosis Prior to Rx (%): 100 Chronic Total Occlusion: No IVUS: No FFR: No Pre-Procedure NILESH Flow: 0 Previously Treated Lesion: No Lesion Complexity: Non-High/Non-C Lesion Length (mm): 20 Thrombus Present: Yes Bifurcation Lesion: No Guidewire Across Lesion: Stenosis Post-Procedure (%): 0 Post-Procedure NILESH Flow: 3 Devices(s) Deployed: No Yes Lesion #2 Segment Name: proximal circumflex Culprit Artery: Yes Stenosis Prior to Rx (%): 100 Chronic Total Occlusion: No IVUS: No FFR: No Pre-Procedure NILESH Flow: 0 Previously Treated Lesion: No Lesion Complexity: Non-High/Non-C Lesion Length (mm): 15 Thrombus Present: Yes Bifurcation Lesion: No Guidewire Across Lesion: Yes Stenosis Post-Procedure (%): 0 Post-Procedure NILESH Flow: 3 Devices(s) Deployed: Yes Intraprocedure Events Significant Disection: No Perforation: No
[2018-06-21] MEDS ORDERED: KETAMINE HCL 500 MG in SODIUM CHLORIDE 0.9% 490 ML IV SCH (14:30)
[2018-06-21 14:37] LABS: iSTAT Arterial Blood Gas HCO3 22 meg/L (19-24); iSTAT Arterial Blood Gas pCO2 50 mmHg (35-46); iSTAT Arterial Blood Gas pH 7.24 (7.35-7.45); iSTAT Carbon Dioxide 23 mEq/l (24-31)
[2018-06-21 14:37] LABS: iSTAT Arterial Blood Gas HCO3 23 meg/L (19-24); iSTAT Arterial Blood Gas pCO2 63 mmHg (35-46); iSTAT Arterial Blood Gas pH 7.18 (7.35-7.45); iSTAT Carbon Dioxide 25 mEq/l (24-31)
[2018-06-21 14:45] LABS: iSTAT Arterial Blood Gas HCO3 15 meg/L (19-24); iSTAT Arterial Blood Gas pCO2 45 mmHg (35-46); iSTAT Arterial Blood Gas pH 7.12 (7.35-7.45); iSTAT Carbon Dioxide 16 mEq/l (24-31); iSTAT FiO2 100 %; iSTAT Site Art Line
[2018-06-21] MEDS ORDERED: VANCOMYCIN HCL 1,000 MG in SODIUM CHLORIDE 0.9% 250 ML IV ONE (14:45)
[2018-06-21] MEDS ORDERED: PIPERACILLIN/TAZOBACTAM 4.5 GM in DEXTROSE 5% 100 ML IV ONE (14:45)
[2018-06-21] MEDS ORDERED: SODIUM BICARBONATE 8.4% 150 MEQ in DEXTROSE 5% 1,000 ML IV SCH (14:45)
[2018-06-21] MEDS ORDERED: CISATRACURIUM BESYLATE IV SOLN 2 MG/ML 10 ML VIAL IV STA (14:56)
[2018-06-21] MEDS ORDERED: CISATRACURIUM BESYLATE 40 MG in 0.9 % SODIUM CHLORIDE 80 ML IV SCH (15:00)
[2018-06-21] MEDS ORDERED: ICU PROTOCOL FOR HYPERGLYCEMIA PRN (15:04)
[2018-06-21] MEDS ORDERED: AMIODARONE 360MG / 200ML D5W IV ONE (15:04)
[2018-06-21] MEDS ORDERED: DOPamine 400MG / 250ML D5W IV ONE (15:07)
[2018-06-21] MEDS ORDERED: DOPAMINE / D5W 400 MG/250 ML BAG IV SCH (15:08)
[2018-06-21] MEDS ORDERED: SODIUM CHLORIDE 3 % 250 ML IV ONE (15:15)
--- NOTE | 2018-06-21 15:19 | History & Physical Report ---
Date of Service June 21, 2018 Assessment & Plan (1) Cardiac arrest with ventricular fibrillation: Pt presented to ER via private vehicle in cardiac arrest. Reported approx. 10-15 minutes prior to arrival pt became unresponsive in car. Pt was found to be in pulseless v-fib arrest in the ambulance bay outside of the ER and CPR was started. Pt received CPR, multiple shocks, and had PEA before ROSC. EKG with questionable inferior ST elevations. 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 Please see Dr Santiago addendum for physical exam and assessment and plan History of Present Illness Primary Care Provider: Dion De Dios MD Pt is 67 y/o F with PMH HTN, dyslipidemia, COPD, CKD III, tobacco use presented to ER for SOB. History obtained from ER staff. It is reported pt was having approx. 5 episodes of diarrhea/day for 1-2 weeks. It is reported pt was brought to [facility] via private vehicle by her for SOB for a couple of days. Upon transportation to ER pt had sudden unresponsiveness which occurred en route, reported approx. 10-15 minutes prior to arrival. Pt was found to be in pulseless v-fib arrest in the ambulance bay outside of the ER and staff started CPR and shock and pt was transferred into the ER. Pt received CPR, multiple shocks, and had PEA before ROSC. EKG with questionable inferior ST elevations. Pt was transferred to farm labor [facility]. Medications obtained from outpatient medication list FH obtained from outpatient records Allergies Allergy/AdvReac Type Severity Reaction Status Date / Time No Known Allergies Allergy Unverified 06/21/18 11:46 Home Medications Home Medications Medication Instructions Recorded Confirmed Type albuterol sulfate 2 inh INHALATION Q6H PRN 06/21/18 06/21/18 History amlodipine 5 mg PO DAILY 06/21/18 06/21/18 History atenolol-chlorthalidone 1 tab PO DAILY 06/21/18 06/21/18 History atorvastatin 40 mg PO DAILY 06/21/18 06/21/18 History benazepril 40 mg PO DAILY 06/21/18 06/21/18 History Past Med/Surg History Medical History CKD (chronic kidney disease), stage III (Chronic) Tobacco abuse (Chronic) COPD (chronic obstructive pulmonary disease) (Chronic) Cardiac arrest HTN (hypertension) (Chronic) HLD (hyperlipidemia) (Chronic) Emphysema/COPD (Acute) Encounter for smoking cessation counseling (Acute) Tobacco dependence due to cigarettes (Acute) No pertinent family history Surgical History History of appendectomy (Chronic) History of cholecystectomy (Chronic) No pertinent past surgical history Family History Other Diabetes Hypertension Social History Preferred Language: Cymraes Communication Ability: sedated Communication Ability Comment: Sedated on vent Sister Superior Required: No Beliefs That Will Affect Care: None marital status: marital status details: Current Living Situation: Spouse current occupational status: retired Other Information That Helps Us Care for You: No Smoking Status: Current every day smoker Hx Alcohol Use: No Hx Substance Use: No Review of Systems Review of Systems: Unobtainable due to endotracheal tube Physical Exam Constitutional: + ill appearing Unresponsive, obtunded on mechanical ventilation Eyes: Bilateral dilated pupil with lateral deviation, IV patches present ENMT: ET tube present Respiratory: On mechanical ventilation Musculoskeletal: Right groin hematoma noted, cold and clammy extremities, without any palpable peripheral pulse Neurologic: Unresponsive/,, no pupillary reflex noted Results & Data Vital Signs (Past 12 Hours) Vital Signs Pulse Pulse Resp BP BP Pulse Ox 06/21/18 14:23 79 18 96 06/21/18 12:41 16 06/21/18 11:20 84 06/21/18 11:16 89 136/111 H 06/21/18 11:10 82 06/21/18 11:09 82 16 100 06/21/18 11:06 76 133/112 H 06/21/18 11:02 123 H 06/21/18 11:00 41 L 100 06/21/18 10:58 44 L 37/33 L 100 06/21/18 10:51 44 L 100 06/21/18 10:49 43 L 70/56 L 100 06/21/18 10:41 45 L 16 96 06/21/18 10:40 46 L 100 06/21/18 10:36 59 L 138/110 H 06/21/18 10:30 126 H 06/21/18 10:27 47/41 L 06/21/18 10:22 45 L 12 100 06/21/18 10:20 147 H 06/21/18 10:18 138 H 06/21/18 10:17 48 L 16 138/110 H 70 L Laboratory Results Short CBC 06/21/18 Range/Units 10:41 WBC 9.56 (4.8-10.8) K/uL Hgb 11.8 L (12.0-16.0) g/dL Hct 36.9 L (37-47) % Plt Count 269 (130-400) K/uL BMP 06/21/18 10:25 Sodium 136 Potassium Chloride 98 Carbon Dioxide 26 BUN 19 H Creatinine 1.91 H Glucose 215 H Calcium 13.5 H* Cardiac Enzymes 06/21/18 Range/Units 10:25 Total Creatine Kinase (26-192) U/L CK-MB (CK-2) 9.1 H (0.5-3.6) ng/ml Troponin I 3.450 H* (0-0.045) ng/ml Liver Function 06/21/18 Range/Units 10:25 Total Bilirubin 0.3 (0.2-1) mg/dl AST (15-37) U/L ALT 63 (12-78) U/L Alkaline Phosphatase 116 (45-117) U/L Albumin 2.4 L (3.4-5.0) gm/dl Diagnostic Findings CXR: IMPRESSION: 1. The endotracheal tube terminates 3.5 cm from the fito. 2. Progressive diffuse interstitial thickening suggestive of developing pulmonary edema. Supervising Physician Co-Signing Physician Notes ATTENDING ADDENDUM: Patient seen and examined, care coordinated with Vicky Cook PA-C This is a 67-year-old female with past medical history of hyperlipidemia, COPD stage III CKD hypertension Brought to ER by her , patient was found to be in V. fib cardiac arrest upon arrival to hospital Had CPR multiple dose of IV epi /atropine/amiodarone/defibrillation VDRF/required intubation EKG shows ST elevation on inferior and lateral leads-ST elevated MA With troponin more than 3 Dynamic EKG change Patient was taken emergently to cardiac [facility] Coronary angiogram showed severe coronary vessel disease, with occluded RCA, proximal occlusion of left circumflex Patient developed hemodynamic instability-requiring maximum dose of epinephrine/vasopressin drip Rapid drop of blood pressure, received approximately 8 L volume resuscitation including 2 units of PRBC patient remained persistently hypovolemic, Hypothermic protocol initiated Temporary pacemaker placed for 2: 1 heart block,/intra- aortic balloon pump placed-for cardiogenic shock Patient remained persistently hypotensive, rapid drop in hemoglobin suggestive of acute blood loss anemia, concern for possible retroperitoneal hematoma Surgery: Dr. Crouch was consulted, Patient is evaluated by surgery team in ICU 106 Patient is a high risk for exploratory laparotomy STEMI /cardiogenic shock with IABP/persistently hypotensive inspite of multiple IV pressor support, After discussing with family members: pt's declined surgery procedure aware that there is a high likelihood that pt may have developed anoxic encephal opathy with irreversible Patient's 4 children, , multiple other family members arrived at bedside family updated multiple times by -Screen Room Operator, intervention cardiology Dr. Huerta, surgery Dr. Crouch and myself Patient had out of hospital V. fib cardiac arrest/ST elevated MA leading to cardiogenic shock - was unresponsive/pulseless for possible 10 to 15 minutes prior to arrival to [facility] ER High likelihood of anoxic encephalopathy Patient also is completely anuric, no urine output in spite of aggressive volume resuscitation Overall prognosis remains extremely poor Family willing for withdrawal of care/comfort measure Discussed CODE STATUS with patient's , does not want any more heroic measures if patient's condition continues to decline, no CPR CODE STATUS changed to DNR/DNI Family members request to continue supportive care until all the family members able to come to hospital, the last visit to the patient Family members wish is honored, IV pressors, mechanical ventilation , Intra-aortic balloon, everything continued till family is ready for withdrawal of care Patient will be given IV morphine, and terminally extubation and will be transitioned to comfort/supportive care possible later today- Philly Santiago MD
[2018-06-21] MEDS ORDERED: [UNRECOGNIZED DRUG - OTHER] IV ONE (15:45)
[2018-06-21] MEDS ORDERED: SODIUM CHLORIDE IV ONE (15:45)
[2018-06-21] MEDS: NOREPINEPHRINE BIT INJ 8 MG in DEXTROSE 5% 250 ML IV SCH ×2 (16:24→18:15)
[2018-06-21] MEDS ORDERED: MoRPHine SULFATE 4 MG/ML 1 ML CARP\\VIAL ONE ×2 (16:51→18:20)
--- NOTE | 2018-06-21 17:22 | Critical Care Consultation ---
Date of Consultation June 21, 2018 Assessment & Plan (1) Cardiac arrest: Impression: 1. ST elevation PA, status post STEVE to the RCA and left circumflex. 2. V. fib cardiac arrest with ROSC. 3. Anoxic brain injury after prolonged code. 4. COPD. 5. Acute respiratory failure secondary to above. 6. Severe metabolic acidosis secondary to ELIAZAR on CKD. 7. CKD. 8. Hematoma. Plan: 1. The patient started on catecholamine support for hemodynamic instability. 2. Epinephrine started and escalated to support map above the 65. 3. Dopamine was started and escalated to support map above than 65. 4. Multiple treatments with epinephrine injection and atropine to support the blood pressure. Bladimir-Synephrine and ephedrine also was used to support the blood pressure. 5. Ventilatory support with adjustment of FiO2 and respiratory rate. 6. IV bicarb was started for metabolic acidosis. 7. The patient remains anuric despite all resuscitative efforts. 8. Balloon pump was stopped, in fact systolic blood pressure improved afterward. 9. Echocardiogram done by me at the bedside showed EF of 30% approximately, the RV was collapsible, and there is respiratory variation in IVC. PA cath showed initially PA pressure with diastolic of 11 only. Cardiac output was less than 3. Blood pressure never normalized despite maximum efforts. Bicarb was given for low pH and it did not improve the efficacy of the pressors. 10. The patient received a dose of Hespan and 2 doses of albumin 500 mL each. 11. The right thigh was noted for localized hematoma, applied tourniquet on it, the borders of the hematoma has not expanded during this admission. 12. Blood transfusion x4 units of RBC and 4 units of FFP and 1 unit of platelets was given. 13. 3% saline as a bolus with 250 mL was given in support of unmeasurable blood pressure. 14. Right IJ cooling line was placed for hypothermia protocol however the patient body temperature was already 32. 15. Paralytics were not given to the patient. In a sense that the family are seeking withdrawal. 16. Sedation was provided with ketamine drip. Given a dose of vancomycin and Zosyn. 17. Surgical consult was obtained, appreciate Dr. Crouch real estate legal assistant, and willing to take the patient to the OR for ex lap despite hemodynamic instability. Family declined the surgery. 18. Long Discussion Took Place with the family including several family members as well as the and given the grim situation, they were not in favor of pursuing aggressive measures any further. 19. The patient CODE STATUS was changed to DNR. 20. Vasopressin was discontinued due to bradycardia, patient required 2 doses of atropine for bradycardia. As well as 2 doses of epinephrine. 21. The patient futility is 100%. No further escalation in treatment at this point, discussed in details with the family, they are in agreement and seeking it as well. Appreciate the assistance of the nursing staff, respiratory therapist, my colleague Dusty Zepeda, Dr. Huerta, Dr. Crouch and the ER staff as well. Case discussed with the staff on multiple occasions, critical care time spent with the patient was 180 minutes excluding procedure time. History of Present Illness Reason for Consultation: Cardiac arrest Requesting Physician: Dr. Huerta Attending Physician: Philly Santiago MD History of Present Illness Dear Dr. Huerta: Thank you for your kind referral of Mrs. Singletary to critical care service. This is 67-year-old female with a history of COPD, active smoker, history of chronic kidney disease, according to the , she was in her usual status of health, up until few days ago when she started having flulike symptoms, her decided to bring her to the hospital and why they were in the car, the patient sustained loss of consciousness and cardiac arrest. He realized that the patient could have but drove her to the hospital and at the footsteps of the ER, the patient underwent CPR and she was in V. fib arrest. The patient was moved to the ED and received multiple defibrillation, epinephrine, CPR and with ROSC. Cardiology was consulted, Dr. Huerta took the patient to the [facility] [employer] [facility] and the patient underwent cardiac cath with STEVE to the RCA and left circumflex. The patient continued to be hypotensive with blood pressure in the 50s systolic, the patient had a balloon pump placed as well without significant improvement in the blood pressure as well. The patient started on heparin, norepinephrine and received multiple allocates of Bladimir- Synephrine at 500 mics each in addition to ephedrine to support the blood pressure. The patient continued to be hypotensive. The patient did have a hematocrit measuring less than 15 and started on blood transfusion. Noted that the patient did have a hematoma at the right groin however it was tamponaded by topical compression. The patient was transferred to the ICU for further management. In the ICU, the patient had the ICY cool catheter placed in the right IJ, dictated separately. The patient body temperature on arrival to the ICU was 32 degrees. The patient continues to be hypotensive and she started becoming bradycardic with heart rate going down to the 40s. The patient received 2 doses of atropine as well as 2 doses of epinephrine. Blood pressure went up to the 60s systolic. Intra-aortic balloon pump was stopped and the blood pressure went up to the 80s for a short period of time. The patient started on massive blood transfusion due to the possibility of retroperitoneal bleed however, blood transfusion as well as FFP and platelets at a ratio of 1:1:1 was started. Despite all the efforts to continue to be hypotensive. PA catheter was in place and noted to have PA diastolic of 11 only. CVP was not measurable. The patient received a dose of volume printing plate setter with 3% normal saline, has been dose 500 mL, 2 doses of albumin 500. In addition to blood product. The pH was checked and it was 7.0 and the patient received 2 A of bicarb in addition to previous 2 A of bicarb in the [employer] [facility]. The patient started on a bicarb drip as well. Surgery was consulted, and appreciate Dr. Saleh arrival at the bedside, evaluated the patient, patient at the maximum high risk for OR for exploration. Meeting with the family took place, and the in addition to an extended family with large number of members all were in agreement that they do not want to escalate any treatment, and her wishes were not to stay or sustained life support. After returning to the room, the patient received 4 mg of morphine, and an effort to sedate the patient from the beginning patient was started on ketamine drip to avoid hemodynamic instability with other sedatives. The patient did not receive paralytics. Further discussion took place also with the family, they are awaiting for the arrival of her brother and they are looking for comfort measures and withdrawal of efforts. Despite extensive efforts from all the nursing staff, respiratory therapist, assistance and the medical physicians involved in this case, the patient continued to have severe hemodynamic instability that is not salvageable at this point and deemed futile. Agree with the decision of the family at this point. Allergies Allergy/AdvReac Type Severity Reaction Status Date / Time No Known Allergies Allergy Unverified 06/21/18 11:46 Home Medications Home Medications Medication Instructions Recorded Confirmed Type albuterol sulfate 2 inh INHALATION Q6H PRN 06/21/18 06/21/18 History amlodipine 5 mg PO DAILY 06/21/18 06/21/18 History atenolol-chlorthalidone 1 tab PO DAILY 06/21/18 06/21/18 History atorvastatin 40 mg PO DAILY 06/21/18 06/21/18 History benazepril 40 mg PO DAILY 06/21/18 06/21/18 History Patient History Medical History CKD (chronic kidney disease), stage III (Chronic) Tobacco abuse (Chronic) COPD (chronic obstructive pulmonary disease) (Chronic) Cardiac arrest HTN (hypertension) (Chronic) HLD (hyperlipidemia) (Chronic) Emphysema/COPD (Acute) Encounter for smoking cessation counseling (Acute) Tobacco dependence due to cigarettes (Acute) No pertinent family history Surgical History History of appendectomy (Chronic) History of cholecystectomy (Chronic) No pertinent past surgical history Family History Other Diabetes Hypertension Social History Preferred Language: Jamaican Communication Ability: sedated Communication Ability Comment: Sedated on vent Transplant Case Manager Required: No Beliefs That Will Affect Care: None marital status: marital status details: Current Living Situation: Spouse current occupational status: retired Other Information That Helps Us Care for You: No Smoking Status: Current every day smoker Hx Alcohol Use: No Hx Substance Use: No Review of Systems Review of Systems: Review of system is not obtainable. Physical Exam Physical Exam: Vital signs are poor with heart rate of 89 with a support of significant amount of catecholamine, blood pressure is 59/32.: Clammy in the periphery. Pale with lateral gaze of the eyes to the right. Pupils are dilated sluggishly reactive. Overbreathing the ventilator. No stridor. Bilateral crackles. S1-S2 regular rate and rhythm. Abdomen noted to be distended in the supra pubic area. Also distention was noted at the left upper quadrant. No edema in the periphery. I/O in place. Balloon pump and PA catheter in the right groin. Neurologically the patient is unresponsive. Results & Data Vital Signs (Past 12 Hours) Vital Signs Pulse Pulse Resp BP BP Pulse Ox 06/21/18 14:23 79 18 96 06/21/18 12:41 16 06/21/18 11:20 84 06/21/18 11:16 89 136/111 H 06/21/18 11:10 82 06/21/18 11:09 82 16 100 06/21/18 11:06 76 133/112 H 06/21/18 11:02 123 H 06/21/18 11:00 41 L 100 06/21/18 10:58 44 L 37/33 L 100 06/21/18 10:51 44 L 100 06/21/18 10:49 43 L 70/56 L 100 06/21/18 10:41 45 L 16 96 06/21/18 10:40 46 L 100 06/21/18 10:36 59 L 138/110 H 06/21/18 10:30 126 H 06/21/18 10:27 47/41 L 06/21/18 10:22 45 L 12 100 06/21/18 10:20 147 H 06/21/18 10:18 138 H 06/21/18 10:17 48 L 16 138/110 H 70 L Laboratory Results Stat labs using i-STAT was done showing hemoglobin less than 5. pH of 7.0. PO2 of 300. Diagnostic Findings Bedside echocardiogram done by me as well as abdominal ultrasound which revealed moderate contractility of the heart, collapsing right ventricle, respiratory variation with IVC, fluid collection likely representing hematoma the right groin, bladder was difficult to visualize due to the patient body position. Chest x-ray showed ET tube in good position, CHF.
--- NOTE | 2018-06-21 17:57 | Procedure Note ---
Procedure Note Date of Service June 21, 2018 Note ICY cool line was placed in the right IJ, no consent, done emergently, under ultrasound guidance, the skin was prepped with chlorhexidine, Using Strict Sterile Fld[address] Seldinger technique, no scalpel was used, dilator was used, 22 cm catheter was placed under ultrasound guidance, and placed into 22 cm, sutured with 2 sutures, and started to use the line immediately, unable to verify it with chest x-ray as the patient was hemodynamically unstable for x-ray. No immediate complication, no local hematoma. Coding
[2018-06-21] MEDS ORDERED: MoRPHine SULFATE 4 MG/ML 1 ML CARP\\VIAL IV PRN (18:18)
[2018-06-21] MEDS ORDERED: [UNRECOGNIZED DRUG - OTHER] IV SCH (18:30)
[2018-06-21] MEDS ORDERED: SODIUM CHLORIDE IV SCH (18:30)
--- NOTE | 2018-06-21 19:28 | Critical Care Progress Note ---
Date of Service June 21, 2018 Assessment & Plan (1) ST elevation (STEMI) myocardial infarction: This is a pronunciation note, the patient was comfort measures only, at the bedside, the patient was pulseless, breathless, unresponsive to tactile or verbal, pupils were fixed dilated, patient pronounced at 18;55 on June 21, 2018. Family were at the bedside. Results & Data Vital Signs (Past 12 Hours) Vital Signs Pulse Pulse Resp BP BP Pulse Ox 06/21/18 18:40 64 06/21/18 18:30 75 06/21/18 18:20 72 06/21/18 18:10 72 06/21/18 18:00 76 06/21/18 17:50 85 06/21/18 17:40 92 H 06/21/18 17:37 89 16 06/21/18 17:30 88 06/21/18 17:20 87 06/21/18 17:10 86 06/21/18 17:00 84 06/21/18 16:50 79 06/21/18 16:40 78 06/21/18 16:30 80 06/21/18 16:20 80 06/21/18 16:10 81 06/21/18 16:08 81 06/21/18 16:00 80 06/21/18 15:50 76 06/21/18 15:40 74 06/21/18 15:30 63 06/21/18 15:20 54 L 06/21/18 15:10 58 L 91 06/21/18 15:00 64 85 L 06/21/18 14:50 84 93 06/21/18 14:47 84 146/49 H 93 06/21/18 14:40 73 100 06/21/18 14:33 76 06/21/18 14:30 76 06/21/18 14:29 76 06/21/18 14:23 79 19 100 06/21/18 14:15 84 19 50/30 L 06/21/18 14:08 85 06/21/18 12:41 16 06/21/18 11:20 84 06/21/18 11:16 89 136/111 H 06/21/18 11:10 82 06/21/18 11:09 82 16 100 06/21/18 11:06 76 133/112 H 06/21/18 11:02 123 H 06/21/18 11:00 41 L 100 06/21/18 10:58 44 L 37/33 L 06/21/18 10:51 44 L 100 06/21/18 10:49 43 L 70/56 L 06/21/18 10:41 45 L 16 96 06/21/18 10:40 46 L 06/21/18 10:36 59 L 138/110 H 06/21/18 10:30 126 H 06/21/18 10:27 47/41 L 06/21/18 10:22 45 L 12 06/21/18 10:20 147 H 06/21/18 10:18 138 H 06/21/18 10:17 48 L 16 138/110 H 70 L (1) ST elevation (STEMI) myocardial infarction Involved coronary artery: unspecified coronary artery Qualified Code(s): I21.3 - ST elevation (STEMI) myocardial infarction of unspecified site
[2018-06-21] MEDS ORDERED: SODIUM BICARB 8.4% INJ 50 MEQ/50 ML SYR IV ONE (20:35)
[2018-06-21] MEDS ORDERED: SODIUM CHLORIDE 0.9% 10ML FLUSH IV ONE (20:35)
[2018-06-21] MEDS ORDERED: NITROGLYCERIN SL 0.4 MG/TAB TAB SL ONE (20:35)
[2018-06-21] MEDS ORDERED: AMIODARONE HCL INJ 50 MG/ML 3 ML VIAL IV ONE (20:35)
[2018-06-21] MEDS ORDERED: CALCIUM CHLORIDE 10% 10 ML SYR IV ONE (20:35)
[2018-06-21] MEDS ORDERED: ATROPINE SULFATE 0.1 MG/ML 10ML SYR IV ONE (20:35)
[2018-06-22 09:24] LABS: iSTAT Arterial Blood Gas HCO3 13 meg/L (19-24); iSTAT Arterial Blood Gas pCO2 41 mmHg (35-46); iSTAT Carbon Dioxide 14 mEq/l (24-31); iSTAT FiO2 60 %; iSTAT Hematocrit < 15 % (37-47); iSTAT Potassium 3.3 mEq/L (3.3-5.0); iSTAT Site Art Line; iSTAT Sodium 157 mEq/L (135-144)
[2018-06-22 11:39] LABS: iSTAT Hematocrit 15 % (37-47); iSTAT Hemoglobin 5.1 g/dl (12.0-16.0); iSTAT Potassium 3.5 mEq/L (3.3-5.0); iSTAT Sodium 149 mEq/L (135-144)
[2018-06-22 11:40] LABS: iSTAT Art Bld Gas pCO2 Correct 41 mmHg (35-46); iSTAT Art Bld Gas pH Corrected 7.204 (7.35-7.45); iSTAT Arterial Blood Gas HCO3 16 meg/L (19-24); iSTAT Arterial Blood Gas pCO2 41 mmHg (35-46); iSTAT Carbon Dioxide 17 mEq/l (24-31)
[2018-06-22 11:41] LABS: Patient Temperature 37; iSTAT Arterial Bld Gas O2 Sat 100; iSTAT FiO2 60 %; iSTAT Sample Type Arterial
[2018-06-22 11:42] LABS: iSTAT Site Art Line
--- NOTE | 2018-06-23 20:41 | Discharge Summary ---
Date of Service June 23, 2018 Admission HPI Per Admitting Provider Pt is 67 y/o F with PMH HTN, dyslipidemia, COPD, CKD III, tobacco use presented to ER for SOB. History obtained from ER staff. It is reported pt was having approx. 5 episodes of diarrhea/day for 1-2 weeks. It is reported pt was brought to [facility] via private vehicle by her for SOB for a couple of days. Upon transportation to ER pt had sudden unresponsiveness which occurred en route, reported approx. 10-15 minutes prior to arrival. Pt was found to be in pulseless v-fib arrest in the ambulance bay outside of the ER and staff started CPR and shock and pt was transferred into the ER. Pt received CPR, multiple shocks, and had PEA before ROSC. EKG with questionable inferior ST elevations. Pt was transferred to labor economics professor. Medications obtained from outpatient medication list FH obtained from outpatient records Principal Diagnosis V. fib cardiac arrest/ST elevated MO, patient Discharge Exam Patient Discharge Data Allergies Allergy/AdvReac Type Severity Reaction Status Date / Time No Known Allergies Allergy Unverified 06/21/18 11:46 Consultations 06/21/18 11:32 ED Decision to Admit Stat 06/21/18 15:04 Consult Case Management - Discharge Planning Routine Consult Bill Adjuster Routine Procedures Performed Operation Date: 06/21/18 11:00 Actual Procedures s Cineradiography w/Routine Exam - Alfie Huerta MD p Aspiration/PCI w/STEVE for Stemi - Alfie Huerta MD p Cath, Right and Left Heart - Alfie Huerta MD s Temporary Transcutaneous Pacing - Alfie Huerta MD s Intra-Aortic Balloon Insertion - Alfie Huerta MD Ordered Studies 06/21/18 11:27 CL Cath Imgs for PACS use only Stat Hospital Course (1) Cardiac arrest with ventricular fibrillation: Pt presented to ER via private vehicle in cardiac arrest. Reported approx. 10-15 minutes prior to arrival pt became unresponsive in car. Pt was found to be in pulseless v-fib arrest in the ambulance bay outside of the ER and CPR was started. Pt received CPR, multiple shocks, and had PEA before ROSC. EKG with questionable inferior ST elevations. Pt was taken to labor economics professor. [facility] [id number] History & Physical Report Signed Patient: ALLIE COCHRAN Date: 06/21/18 MR#: [id number] Phy: Philly Santiago M.D. Acct ID:[id number] Phy: Dion De Dios MD Date: 1950Fam Phy: Age: 67Location: 1E Sex: F Room/Bed: [facility], [place] cc: Job Huerta MD; Philly Santiago M.D.; Dion De Dios MD; Vicky Cook PA-C; Alanna Barbosa MD~ *NOTICE TO RECEIVING REPUBLICAN/AGENCY This information is strictly Confidential and protected under [place] law. [place] law prohibits you from making any further disclosure of this information unless further disclosure is expressly permitted by the written consent of the person to whom it pertains or is authorized by law. A general authorization for the release of medical or other information is not sufficient for this purpose. Hospital accepts no responsibility if the information is made available to any other person, INCLUDING THE PATIENT. Date of Service June 21, 2018 Assessment & Plan (1) Cardiac arrest with ventricular fibrillation: Pt presented to ER via private vehicle in cardiac arrest. Reported approx. 10-15 minutes prior to arrival pt became unresponsive in car. Pt was found to be in pulseless v-fib arrest in the ambulance bay outside of the ER and CPR was started. Pt received CPR, multiple shocks, and had PEA before ROSC. EKG with questionable inferior ST elevations. Pt was taken to labor economics professor. Please see Dr Santiago addendum for physical exam and assessment and plan History of Present Illness Primary Care Provider: Dion De Dios MD Pt is 67 y/o F with PMH HTN, dyslipidemia, COPD, CKD III, tobacco use presented to ER for SOB. History obtained from ER staff. It is reported pt was having approx. 5 episodes of diarrhea/day for 1-2 weeks. It is reported pt was brought to [facility] via private vehicle by her for SOB for a couple of days. Upon transportation to ER pt had sudden unresponsiveness which occurred en route, reported approx. 10-15 minutes prior to arrival. Pt was found to be in pulseless v-fib arrest in the ambulance bay outside of the ER and staff started CPR and shock and pt was transferred into the ER. Pt received CPR, multiple shocks, and had PEA before ROSC. EKG with questionable inferior ST elevations. Pt was transferred to labor economics professor. Medications obtained from outpatient medication list FH obtained from outpatient records Allergies Allergy/AdvReac Type Severity Reaction Status Date / Time No Known Allergies Allergy Unverified 06/21/18 11:46 Home Medications Home Medications Medication Instructions Recorded Confirmed Type albuterol sulfate 2 inh INHALATION Q6H PRN 06/21/18 06/21/18 History amlodipine 5 mg PO DAILY 06/21/18 06/21/18 History atenolol-chlorthalidone 1 tab PO DAILY 06/21/18 06/21/18 History atorvastatin 40 mg PO DAILY 06/21/18 06/21/18 History benazepril 40 mg PO DAILY 06/21/18 06/21/18 History Past Med/Surg History Medical History CKD (chronic kidney disease), stage III (Chronic) Tobacco abuse (Chronic) COPD (chronic obstructive pulmonary disease) (Chronic) Cardiac arrest HTN (hypertension) (Chronic) HLD (hyperlipidemia) (Chronic) Emphysema/COPD (Acute) Encounter for smoking cessation counseling (Acute) Tobacco dependence due to cigarettes (Acute) No pertinent family history Surgical History History of appendectomy (Chronic) History of cholecystectomy (Chronic) No pertinent past surgical history Family History Other Diabetes Hypertension Social History Preferred Language: Faroese Communication Ability: sedated Communication Ability Comment: Sedated on vent Bellmaker Required: No Beliefs That Will Affect Care: None marital status: marital status details: Current Living Situation: Spouse current occupational status: retired Other Information That Helps Us Care for You: No Smoking Status: Current every day smoker Hx Alcohol Use: No Hx Substance Use: No Review of Systems Review of Systems: Unobtainable due to endotracheal tube Physical Exam Constitutional: + ill appearing Unresponsive, obtunded on mechanical ventilation Eyes: Bilateral dilated pupil with lateral deviation, IV patches present ENMT: ET tube present Respiratory: On mechanical ventilation Musculoskeletal: Right groin hematoma noted, cold and clammy extremities, without any palpable peripheral pulse Neurologic: Unresponsive/,, no pupillary reflex noted Results & Data Vital Signs (Past 12 Hours) Vital Signs Pulse Pulse Resp BP BP Pulse Ox 06/21/18 14:23 79 18 96 06/21/18 12:41 16 06/21/18 11:20 84 06/21/18 11:16 89 136/111 H 06/21/18 11:10 82 06/21/18 11:09 82 16 100 06/21/18 11:06 76 133/112 H 06/21/18 11:02 123 H 06/21/18 11:00 41 L 100 06/21/18 10:58 44 L 37/33 L 06/21/18 10:51 44 L 100 06/21/18 10:49 43 L 70/56 L 100 06/21/18 10:41 45 L 16 96 06/21/18 10:40 46 L 100 06/21/18 10:36 59 L 138/110 H 06/21/18 10:30 126 H 06/21/18 10:27 47/41 L 06/21/18 10:22 45 L 12 100 06/21/18 10:20 147 H 06/21/18 10:18 138 H 06/21/18 10:17 48 L 16 138/110 H 70 L Laboratory Results Short CBC 06/21/18 Range/Units 10:41 WBC 9.56 (4.8-10.8) K/uL Hgb 11.8 L (12.0-16.0) g/dL Hct 36.9 L (37-47) % Plt Count 269 (130-400) K/uL BMP 06/21/18 10:25 Sodium 136 Potassium Chloride 98 Carbon Dioxide 26 BUN 19 H Creatinine 1.91 H Glucose 215 H Calcium 13.5 H* Cardiac Enzymes 06/21/18 Range/Units 10:25 Total Creatine Kinase (26-192) U/L CK-MB (CK-2) 9.1 H (0.5-3.6) ng/ml Troponin I 3.450 H* (0-0.045) ng/ml Liver Function 06/21/18 Range/Units 10:25 Total Bilirubin 0.3 (0.2-1) mg/dl AST (15-37) U/L ALT 63 (12-78) U/L Alkaline Phosphatase 116 (45-117) U/L Albumin 2.4 L (3.4-5.0) gm/dl Diagnostic Findings CXR: IMPRESSION: 1. The endotracheal tube terminates 3.5 cm from the fito. 2. Progressive diffuse interstitial thickening suggestive of developing pulmonary edema. Supervising Physician Co-Signing Physician Notes ATTENDING ADDENDUM: Patient seen and examined, care coordinated with Vicky Cook PA-C This is a 67-year-old female with past medical history of hyperlipidemia, COPD stage III CKD hypertension Brought to ER by her , patient was found to be in V. fib cardiac arrest upon arrival to hospital Had CPR multiple dose of IV epi /atropine/amiodarone/defibrillation VDRF/required intubation EKG shows ST elevation on inferior and lateral leads-ST elevated MO With troponin more than 3 Dynamic EKG change Patient was taken emergently to cardiac [employer] Coronary angiogram showed severe coronary vessel disease, with occluded RCA, proximal occlusion of left circumflex Patient developed hemodynamic instability-requiring maximum dose of epinephrine/vasopressin drip Rapid drop of blood pressure, received approximately 8 L volume resuscitation including 2 units of PRBC patient remained persistently hypovolemic, Hypothermic protocol initiated Temporary pacemaker placed for 2: 1 heart block,/intra- aortic balloon pump placed-for cardiogenic shock Patient remained persistently hypotensive, rapid drop in hemoglobin suggestive of acute blood loss anemia, concern for possible retroperitoneal hematoma Surgery: Dr. Crouch was consulted, Patient is evaluated by surgery team in ICU 106 Patient is a high risk for exploratory laparotomy STEMI /cardiogenic shock with IABP/persistently hypotensive inspite of multiple IV pressor support, After discussing with family members: pt's declined surgery procedure aware that there is a high likelihood that pt may have developed anoxic encephalopathy with irreversible Patient's 4 children, , multiple other family members arrived at bedside family updated multiple times by -Bill Adjuster, intervention cardiology Dr. Huerta, surgery Dr. Crouch and myself Patient had out of hospital V. fib cardiac arrest/ST elevated MO leading to cardiogenic shock - was unresponsive/pulseless for possible 10 to 15 minutes prior to arrival to [facility] ER High likelihood of anoxic encephalopathy Patient also is completely anuric, no urine output in spite of aggressive volume resuscitation Overall prognosis remains extremely poor Family willing for withdrawal of care/comfort measure Discussed CODE STATUS with patient's , does not want any more heroic measures if patient's condition continues to decline, no CPR CODE STATUS changed to DNR/DNI Family members request to continue supportive care until all the family members able to come to hospital, the last visit to the patient Family members wish is honored, IV pressors, mechanical ventilation , Intra-aortic balloon, everything continued till family is ready for withdrawal of care Patient given IV morphine, and terminally extubation with transitioned to comfort/supportive care Patient in ICU, multiple family members present, time of 2035 Philly Santiago MD Total Time Total Time Spent Total Time Spent (In Minutes): Patient Discharge Plan Discharge Items Patient Disposition: Admission Data Admit Date/Time: 06/21/18 15:04 Service: Intensive Care Unit Other DC Date/Time DO NOT enter until pt leaves facility: 06/21/18 20:36
[2018-06-26 14:32] LABS: iSTAT Art Bld Gas pCO2 Correct 41 mmHg (35-46); iSTAT Art Bld Gas pH Corrected 7.204 (7.35-7.45); iSTAT Arterial Blood Gas HCO3 16 meg/L (19-24); iSTAT Arterial Blood Gas pCO2 41 mmHg (35-46); iSTAT Carbon Dioxide 17 mEq/l (24-31); iSTAT FiO2 60 %; iSTAT Hematocrit 15 % (37-47); iSTAT Hemoglobin 5.1 g/dl (12.0-16.0); iSTAT Potassium 3.5 mEq/L (3.3-5.0); iSTAT Site Art Line; iSTAT Sodium 149 mEq/L (135-144)
== END 2018-06-21 20:36 | disposition expired | DRG 229 ==
LOC: ED 10:11 → OR 11:30 → 1E 14:36
PROC: CLB.TTP (2018-06-21 11:00)